=== PATIENT | female | born 1970 | race African-American/Black ===

== ENCOUNTER 2016-12-29 09:50 | Inpatient (IN) | payer OTHER ==
[2016-12-29] MEDS ORDERED: PANTOPRAZOLE SODIUM 40 MG in SODIUM CHLORIDE 100 ML IVPB ONE (10:09)
[2016-12-29] MEDS ORDERED: ONDANSETRON 4 MG/2 ML VIAL IVPB ONE ×2 (10:09→11:33)
[2016-12-29] MEDS ORDERED: morphine CARPU-JECT 4 MG/1 ML DISP.SYRIN IVPUSH ONE ×2 (10:09→18:55)
[2016-12-29] MEDS ORDERED: SODIUM CHLORIDE 1,000 ML IV STA ×2 (10:09→14:21)
[2016-12-29] MEDS ORDERED: ONDANSETRON 4 MG/2 ML VIAL ONE ×2 (10:19→19:27)
[2016-12-29] MEDS ORDERED: PANTOPRAZOLE SODIUM 100 ML IVPB ONE (10:19)
[2016-12-29] MEDS ORDERED: morphine CARPU-JECT 4 MG/1 ML DISP.SYRIN ONE ×2 (10:19→18:58)
--- NOTE | 2016-12-29 10:43 | PDOC ---
History of Present Illness <Bernie Chino - Last Filed: 12/29/16 15:08> - History of Present Illness Initial Comments: 12/29/16 10:40 "The patient is a 48 year old female, with significant past medical history of bilateral breast cancer, ovarian cancer, gastric cancer ( recent diagnoses and is not currently undergoing any treatment), DM, HTN, DVT (on lovenox), who presents to the emergency department today with 3 days of abdominal pain. She states that the pain is constant and 10/10 in severity. She notes associated nausea, vomiting, and an episode of loose stool yesterday. She experienced similar symptoms in 10/2016 when she was seen at [facility] for a bowel blockage , and again when she was admitted to [facility] on 11/11/16-11/15/16 for a bowel blockage. Pt states her current symptoms are consistent with these two prior episodes. She recently had a PET CT last , 6 days ago, at [facility] which showed carcinoma of the stomach lining. Denies fever, chills. Denies chest pain, SOB. Denies leg swelling, calf pain. Allergies: lisinopril, rivaroxaban, tamoxifen Surgical history: hysterectomy 2013 PCP: Dr. Mackenzie Syed " <Rolo Mathis - Last Filed: 12/29/16 21:52> - General Chief Complaint: Nausea/Vomiting Stated Complaint: VOMITING Time Seen by Provider: 12/29/16 10:08 Past History <Bernie Chino - Last Filed: 12/29/16 15:08> - Past Medical History Asthma: Yes Cancer: Yes (breast, ovarian, gastric) Diabetes: Yes HTN: Yes Lung CA: (hx of PE) - Family Disease History Family Disease History: Diabetes: Mother, Heart Disease: Father - Immunization History Immunization Up to Date: Yes - Suicide/Smoking/Psychosocial Hx Smoking History: Never smoked Have you smoked in the past 12 months: No Information on smoking cessation initiated: No Hx Alcohol Use: No Drug/Substance Use Hx: No Substance Use Type: None <Rolo Mathis - Last Filed: 12/29/16 21:52> - Past Medical History Allergies/Adverse Reactions: Allergies Allergy/AdvReac Type Severity Reaction Status Date / Time lisinopril Allergy Severe Swelling Verified 12/29/16 10:03 rivaroxaban [From Xarelto] Allergy Severe Swelling Verified 12/29/16 10:03 tamoxifen Allergy Severe Swelling Verified 12/29/16 10:03 Home Medications: Ambulatory Orders Enoxaparin Sodium [Lovenox] 150 mg SQ DAILY 12/29/16 Metoclopramide HCl 10 mg PO DAILY PRN 12/29/16 Omeprazole 40 mg PO DAILY 12/29/16 Sennosides [Senna Concentrate] 8.6 mg PO DAILY 12/29/16 Simethicone [Gas Relief] 125 mg PO PRN 12/29/16 Review of Systems - Review of Systems Comments:: 12/29/16 10:42 "GENERAL/CONSTITUTIONAL: No fever or chills. No weakness. HEAD, EYES, EARS, NOSE AND THROAT: No change in vision. No ear pain or discharge. No sore throat. CARDIOVASCULAR: No chest pain or shortness of breath. RESPIRATORY: No cough, wheezing, or hemoptysis. GASTROINTESTINAL: + abdominal pain, nausea, vomiting, loose stool. No constipation. GENITOURINARY: No dysuria, frequency, or change in urination. MUSCULOSKELETAL: No joint or muscle swelling or pain. No neck or back pain. SKIN: No rash NEUROLOGIC: No headache, vertigo, loss of consciousness, or change in strength/ sensation. ENDOCRINE: No increased thirst. No abnormal weight change. HEMATOLOGIC/LYMPHATIC: No anemia, easy bleeding, or history of blood clots. ALLERGIC/IMMUNOLOGIC: No hives or skin allergy." <Rolo Mathis - Last Filed: 12/29/16 21:52> *Physical Exam - Vital Signs Last Vital Signs Temp Pulse Resp BP Pulse Ox 97.8 F 78 18 134/78 100 12/29/16 11:33 12/29/16 14:02 12/29/16 14:02 12/29/16 14:02 12/29/16 11:33 <Bernie Chino - Last Filed: 12/29/16 15:08> - Vital Signs Last Vital Signs Temp Pulse Resp BP Pulse Ox 97.3 F L 100 H 22 154/125 100 12/29/16 10:04 12/29/16 10:04 12/29/16 10:04 12/29/16 10:04 12/29/16 10:04 - Physical Exam Comments: 12/29/16 10:42 " GENERAL: Awake, alert, and fully oriented, in no acute distress HEAD: No signs of trauma EYES: PERRLA, EOMI, sclera anicteric, conjunctiva clear ENT: Auricles normal inspection, hearing grossly normal, nares patent, oropharynx clear without exudates. Moist mucosa NECK: Nontender, no stepoffs, Normal ROM, supple, no lymphadenopathy, JVD, or masses LUNGS: Breath sounds equal, clear to auscultation bilaterally. No wheezes, and no crackles HEART: Regular rate and rhythm, normal S1 and S2, no murmurs, rubs or gallops ABDOMEN: +obese, soft, non distended, diffusely tender to palpation, most notably in the epigastric region, no palpable masses. normoactive bowel sounds. No guarding, no rebound. EXTREMITIES: Normal range of motion, no edema. No clubbing or cyanosis. No cords, erythema, or tenderness NEUROLOGICAL: Cranial nerves II through XII intact. 5/5 strength and sensation in all extremities, Normal speech, normal gait SKIN: Warm, Dry, normal turgor, no rashes or lesions noted." <DelfinaRolo - Last Filed: 12/29/16 21:52> ED Treatment Course - LABORATORY CBC & Chemistry Diagram: 12/29/16 11:00 12/29/16 11:00 - ADDITIONAL ORDERS Additional order review: Laboratory Results 12/29/16 12/29/16 12/29/16 11:00 11:00 11:00 PT with INR INR PTT (Actin FS) Sodium 139 Potassium 3.4 L Chloride 102 Carbon Dioxide 27 Anion Gap 10 BUN 11 Creatinine 1.0 D Creat Clearance w eGFR > 60 Random Glucose 130 H D Lactic Acid 1.7 Calcium 9.2 Magnesium 2.1 Total Bilirubin 1.0 D AST 15 D ALT 15 Alkaline Phosphatase 68 D Total Protein 7.6 Albumin 4.0 Lipase 64 L Blood Type A POSITIVE Antibody Screen Negative 12/29/16 11:00 PT with INR 12.30 H INR 1.12 D PTT (Actin FS) 27.6 Sodium Potassium Chloride Carbon Dioxide Anion Gap BUN Creatinine Creat Clearance w eGFR Random Glucose Lactic Acid Calcium Magnesium Total Bilirubin AST ALT Alkaline Phosphatase Total Protein Albumin Lipase Blood Type Antibody Screen 12/29/16 11:00 RBC 5.12 MCV 88.6 MCHC 32.2 RDW 14.1 MPV 10.9 D Neutrophils % 82.4 D Lymphocytes % 11.2 D Monocytes % 6.2 Eosinophils % 0.0 D Basophils % 0.2 - RADIOLOGY Radiograph Interpretation: 12/29/16 14:12 EXAM: CT abdomen and pelvis without contrast FINDINGS: Evaluation of the bowel, vessels, lymph nodes and solid viscera is limited without contrast. There is linear scarring versus atelectasis in the anterolateral left lower lobe and minimal linear scarring versus atelectasis in the lateral segment of the right middle lobe. The heart is not enlarged. There is a small volume of pericardial fluid which is presumably physiologic. The liver and spleen are normal in size. There is mild hepatic steatosis. The gallbladder is distended, which is nonspecific and may be physiologic related to prolonged fasting. The unenhanced pancreas is unremarkable. There is no mass in the adrenal glands. There are no renal calculi. No hydroureteronephrosis. Normal caliber abdominal aorta. There are dilated fluid-filled small bowel loops with scattered air-fluid levels, measuring up to 3.9 cm in diameter. The entire colon and terminal ileum are collapsed. There is a transition point in the pelvis, for example coronal image 55). The entire colon as well as the terminal ileum are collapsed. There is fat stranding and free fluid surrounding the dilated small bowel loops, some of which may be attributed to venous congestion. There is prominent submucosal fat deposition in the ascending colon, cecum and terminal ileum, which suggests chronic recurrent inflammation. The appendix is collapsed. There is no free intraperitoneal air. There is small volume of perihepatic and perisplenic free fluid. The uterus is surgically absent. There are postsurgical changes in the midline lower anterior abdominal wall. The urinary bladder is collapsed, precluding evaluation. There are multiple venous collaterals in the subcutaneous fat of the anterior lower chest wall and anterior abdominal wall. There is a small fat-containing infraumbilical hernia. There is nonspecific focal soft tissue in the skin and subcutaneous fat overlying the left lower quadrant of the abdomen, which may be secondary to recent injection. There is probable scar tissue in the subcutaneous fat overlying the left upper quadrant. There is incompletely imaged irregular soft tissue in the right breast, which abuts the chest wall. There is no acute fracture in the visualized osseous structures. IMPRESSION: 1. Mechanical small bowel obstruction with transition point in the pelvis as described above is probably complete, although evaluation is limited without enteric contrast. Surgical evaluation is recommended. 2. Asymmetric, irregular soft tissue in the inferior right breast, abutting the chest wall, is incompletely visualized and characterized on CT. Please correlate clinically with physical exam and medical history. Please correlate with most recent dedicated breast imaging to assess for neoplasia. 3. Mild hepatic steatosis. 4. Moderate distention of the gallbladder may be physiologic, related to prolonged fasting. Please correlate clinically. Reported By: Alonso Villavicencio MD 12/29/16 9527 EXAM#: TYPE/EXAM: RESULT: [id number] RAD/CHEST X-RAY PORTABLE* HISTORY PROVIDED: Nausea and vomiting. A single frontal portable projection of the chest at 10:20 AM is submitted. The heart size is slightly enlarged. A left-sided Port-A-Cath is present. The lung morin are free of pulmonary infiltrates or pleural effusions. IMPRESSION: Mild cardiomegaly, no acute disease. Reported By: Tarun Streeter MD 12/29/16 0554 - Medications Given in the ED: ED Medications Discontinued Medications Generic Name Dose Route Start Last Admin Trade Name Freq PRN Reason Stop Dose Admin Hydromorphone HCl 1 mg 12/29/16 11:41 12/29/16 12:10 Dilaudid Injection - IVPUSH 12/29/16 11:42 1 mg ONCE ONE Administration Pantoprazole Sodium 40 mg/ 100 mls @ 200 mls/hr 12/29/16 10:09 12/29/16 10:41 Sodium Chloride IVPB 12/29/16 10:38 200 mls/hr ONCE ONE Administration Sodium Chloride 1,000 mls @ 1,000 mls/hr 12/29/16 10:09 12/29/16 10:40 Normal Saline - IV 12/29/16 11:08 1,000 mls/hr ASDIR STA Administration Morphine Sulfate 4 mg 12/29/16 10:09 12/29/16 10:41 Morphine Injection - IVPUSH 12/29/16 10:10 4 mg ONCE ONE Administration Ondansetron HCl 4 mg 12/29/16 10:09 12/29/16 10:41 Zofran Injection IVPB 12/29/16 10:10 4 mg ONCE ONE Administration Ondansetron HCl 4 mg 12/29/16 11:33 12/29/16 11:35 Zofran Injection IVPB 12/29/16 11:34 4 mg ONCE ONE Administration <Bernie Chino - Last Filed: 12/29/16 15:08> - LABORATORY CBC & Chemistry Diagram: 12/29/16 11:00 12/29/16 11:00 - RADIOLOGY Radiology Studies Ordered: Category Date Time Status ABDOMEN & PELVIS CT WITH CONTR [CT] Stat CT Scan 12/29/16 10:09 Ordered CHEST X-RAY PORTABLE* [RAD] Stat Radiology 12/29/16 10:09 Ordered <Rolo Mathis - Last Filed: 12/29/16 21:52> Medical Decision Making - Medical Decision Making 12/29/16 14:14 [facility] paged at at 2:15pm. Dr. Gonzalez was down in the ER and spoke with Dr. Mathis. 12/29/16 14:[address] Figueroa, oncologist, at . Awaiting call back. 12/29/16 15:08 Dr. Figueroa called back and spoke with Dr. Mathis. <Bernie Chino - Last Filed: 12/29/16 15:08> - Medical Decision Making 12/29/16 10:42 46 F with recently diagnosed gastric CA, two prior SBOs presenting to ER with abdominal pain and vomiting, concerning for SBO. - Labs - CTAP - IVF, pain meds 12/29/16 15:10 I spoke with pt's oncologist, Dr. Figueroa at [facility], who reports that pt had a bowel obstruction in November 2016 that was due to malignancy. Pt had resection at that time. Pt also had PET CT a few days ago that did not show definite metastatic disease but did have some mesenteric fat stranding. CTAP today consistent with SBO. Dr. Gonzalez aware of pt, recommends at this time NG tube and admission for further medical work up. 12/29/16 15:37 Pt refusing NG tube at this time. Case discussed in detail with admitting physician including history, physical exam and ancillary studies. Admitting physician has assumed care for the patient and will follow all pending diagnostics and complete the evaluation and treatment. <Rolo Mathis - Last Filed: 12/29/16 21:52> *DC/Admit/Observation/Transfer - Attestations Scribe Attestion: 12/29/16 14:36 Documentation prepared by MISBAH Price, acting as medical affairs specialist for Rolo Mathis MD. <Bernie Chino - Last Filed: 12/29/16 15:08> - Attestations Physician Attestion: 12/29/16 21:52 I, Dr. Rolo Mathis MD, attest that this document has been prepared under my direction and personally reviewed by me in its entirety. I further attest, that it accurately reflects all work, treatment, procedures and medical decision -making performed by me. <Rolo Mathis - Last Filed: 12/29/16 21:52> Diagnosis at time of Disposition: Small bowel obstruction - Referrals
[2016-12-29 11:21] LABS: BASOPHIL 0.2 % (0-2.0); MCH 28.5 pg (25.7-33.7); MCHC 32.2 g/dl (32.0-36.0); MEAN CELL VOLUME 88.6 fl (80-96); MEAN PLT VOLUME 10.9 fl (7.5-11.1); NEUTROPHILS 82.4 % (42.8-82.8); PLATELET COUNT 160 K/MM3 (134-434); RDW 14.1 % (11.6-15.6); WHITE BLOOD COUNT 7.6 K/mm3 (4.0-10.0)
[2016-12-29 11:31] LABS: ANION GAP 10 (8-16); CALCIUM 9.2 mg/dL (8.5-10.1); CO2 27 mmol/L (21-32); GLUCOSE,RANDOM 130 mg/dL (74-106); INR 1.12 (0.82-1.09); MAGNESIUM 2.1 mg/dL (1.8-2.4); PROTHROMBIN TIME (PATIENT) 12.3 SEC (9.98-11.88)
[2016-12-29 11:34] LABS: ACTIVATED PTT 27.6 SECONDS (26.9-34.4); ALK PHOS 68 U/L (45-117); SGOT/AST 15 U/L (15-37); SGPT/ALT 15 U/L (12-78); TOT PROT 7.6 g/dl (6.4-8.2)
[2016-12-29] MEDS ORDERED: HYDROmorphone HCL CARPU-JECT 1 MG/1 ML DISP.SYRIN IVPUSH ONE (11:41)
[2016-12-29] MEDS ORDERED: HYDROmorphone HCL CARPU-JECT 1 MG/1 ML DISP.SYRIN ONE (11:42)
[2016-12-29] MEDS ORDERED: ENOXAPARIN NA (PORCINE) 40 MG/0.4 ML DISP.SYRIN SQ SCH (16:45)
--- NOTE | 2016-12-29 17:04 | HP ---
CHIEF COMPLAINT: Abdominal pain, N/V X3 days PCP: Dr Ivan Sneed-[facility]- [phone] Oncologist-Dr VALERIO -[facility] -[phone] HISTORY OF PRESENT ILLNESS: The patient is a 48 year old female, with significant past history of multiple surgeries including two unilateral oophorectomies, then hysterectomy, bilateral breast cancer, ovarian cancer, peritoneal cancer (recent diagnoses and is not currently undergoing any treatment), asthma, DM, HTN, DVT (on lovenox), who presents to the emergency department today with 3 days hx of abdominal pain. The pain is midline, located more in the epigastric region, but radiating to the back. It is colicky in nature and is a 10/10. The pain is worse by leaning forward and has been relieved in the hospital with morphine. There is no known precipitating factor, the pain comes on suddenly and is associated with nausea and vomiting. the patient has had recurrent episodes of vomiting, since the onset of the pain, containing yellowish substances and foul smelling. No associated hematemesis. A day before the pain started the patient had several episodes of "liquid" brown stool. No associated melena or hematochezia. 2 days prior to the onset of the pain, she said she had been constipated. Patient usually passes stool about twice everyday but her last bowel movement was 2 days ago. Patient has had similar episodes in the past for which she was seen at [facility] and had an NGT placed. The daughter thinks this episode was precipitated by eating lobster, but the patient was not so sure. The first episode of abdominal pain and vomiting was on October 21, and the episodes have been recurrent, coming on about every two weeks. ER course was notable for: (1)CT abdomen-shows mechanical bowel obstruction with transition zone in the pelvis (2)lipase-64, normal LFTs, normal CBCs (3)Hypokalemia-3.4 4) Pain management with morphine and hydromorphone, zofran , N/saline and pantoprazole 4)CXR_ cardiomegaly w/no acute dx Recent Travel: PAST MEDICAL HISTORY: HTN DM Asthma DVT (LL and UL) Endometriosis Breast cancer Peritoneal Cancer Neuropathy ? Osteoarthritis PAST SURGICAL HISTORY: Hysterectomy Oophoractomy and cystectomy Bilaterally mastectomy Social History: Smoking: Alcohol: Drugs: Family History: Allergies lisinopril Allergy (Severe, Verified 12/29/16 10:03) Swelling rivaroxaban [From Xarelto] Allergy (Severe, Verified 12/29/16 10:03) Swelling tamoxifen Allergy (Severe, Verified 12/29/16 10:03) Swelling HOME MEDICATIONS: Home Medications Medication Instructions Recorded Enoxaparin Sodium [Lovenox] 150 mg SQ DAILY 12/29/16 Metoclopramide HCl 10 mg PO DAILY PRN 12/29/16 Omeprazole 40 mg PO DAILY 12/29/16 Sennosides [Senna Concentrate] 8.6 mg PO DAILY 12/29/16 Simethicone [Gas Relief] 125 mg PO PRN 12/29/16 REVIEW OF SYSTEMS CONSTITUTIONAL: Absent: fever, chills, diaphoresis, generalized weakness, malaise, loss of appetite, weight change HEENT: Absent: rhinorrhea, nasal congestion, throat pain, throat swelling, difficulty swallowing, mouth swelling, ear pain, eye pain, visual changes CARDIOVASCULAR: Absent: chest pain, syncope, palpitations, irregular heart rate, lightheadedness , peripheral edema RESPIRATORY: Absent: cough, shortness of breath, dyspnea with exertion, orthopnea, wheezing, stridor, hemoptysis GASTROINTESTINAL: Absent: abdominal pain+, abdominal distension, nausea+, vomiting+, diarrhea+, constipation+, melena, hematochezia GENITOURINARY: Absent: dysuria, frequency, urgency, hesitancy, hematuria, flank pain, genital pain MUSCULOSKELETAL: Absent: myalgia, arthralgia, joint swelling, back pain, neck pain SKIN: Absent: rash, itching, pallor HEMATOLOGIC/IMMUNOLOGIC: Absent: easy bleeding, easy bruising, lymphadenopathy, frequent infections ENDOCRINE: Absent: unexplained weight gain, unexplained weight loss, heat intolerance, cold intolerance NEUROLOGIC: Absent: headache, focal weakness or paresthesias, dizziness, unsteady gait, seizure, mental status changes, bladder or bowel incontinence PSYCHIATRIC: Absent: anxiety, depression, suicidal or homicidal ideation, hallucinations. PHYSICAL EXAMINATION Vital Signs 12/29/16 12/29/16 12/29/16 11:33 14:02 17:35 Temperature 97.8 F 97.8 F Pulse Rate [ 97 H 78 78 Left Radial] Respiratory 19 18 17 Rate Blood Pressure 151/94 134/78 134/65 [Right Arm] O2 Sat by Pulse 100 100 Oximetry (%) GENERAL: Obese lady, awake, alert, and fully oriented, in mild painful distress. HEAD: Normal with no signs of trauma. EYES: Pupils equal, round and reactive to light, extraocular movements intact, sclera anicteric, conjunctiva clear. No lid lag. EARS, NOSE, THROAT: Ears normal, nares patent, oropharynx clear without exudates. Moist mucous membranes. NECK: Normal range of motion, supple without lymphadenopathy, JVD, or masses. LUNGS:Port seen on L chest. Breath sounds equal, clear to auscultation bilaterally. No wheezes, and no crackles. No accessory muscle use. HEART: Regular rate and rhythm, normal S1 and S2 without murmur, rub or gallop. ABDOMEN: Obese, midline scar seen below the umbilicus. Soft, tender epigastrium. Hyperactive bowel sounds, mild guarding, no rebound, no masses. No hepatomegaly or splenomegaly. MUSCULOSKELETAL: Normal range of motion at all joints. No bony deformities or tenderness. No CVA tenderness. UPPER EXTREMITIES: 2+ pulses, warm, well-perfused. No cyanosis. No clubbing. No peripheral edema. LOWER EXTREMITIES: 2+ pulses, warm, well-perfused. No calf tenderness. No peripheral edema. NEUROLOGICAL: Cranial nerves II-XII intact. Normal speech. Normal gait. PSYCHIATRIC: Cooperative. Good eye contact. Appropriate mood and affect. SKIN: Warm, dry, normal turgor, no rashes or lesions noted, normal capillary refill. ASSESSMENT/PLAN: #Small bowel obstruction likely 2/2 to adhesions History of multiple pelvic surgeries in past, could also be related to her new diagnosis of ? peritoneal cancer pressing on the bowel and obstructing it NPO IV fluids N/saline zofran NGT CBC BMP Consult- oncology Consult- Surgery- Follow up with [facility] doctors for accurate records monitor CBC, Mg, K, Phos #Hypokalemia Due to the vomiting Replete with KCL Will monitor CMP #Nausea and vomiting: Zofran #Abdominal pain Likely due to the obstruction Dilaudid #DM Patient said she has been managed on diet alone SSI Will monitor #HTN Patient says she has been stable off meds managed with diet Will monitor #Asthma No SOB, not in acute exacerbation Will monitor #DVT On lovenox 150mls/day Continue #FEN Continue N/saline Replete electrolytes as needed NPO for now #Prophylaxis DVT- on Lovenox 150ml/day (for DVT) # Dispo Admit Med Surg Visit type - Emergency Visit Emergency Visit: Yes ED Registration Date: 12/29/16 Care time: The patient presented to the Emergency Department on the above date and was hospitalized for further evaluation of their emergent condition. - New Patient This patient is new to me today: Yes Date on this admission: 12/29/16 - Critical Care Critical Care patient: No
--- NOTE | 2016-12-29 17:23 | PN ---
Teaching Attending Note Name of Resident: Jennifer Burgos ATTENDING PHYSICIAN STATEMENT I saw and evaluated the patient. I reviewed the resident's note and discussed the case with the resident. I agree with the resident's findings and plan as documented. SUBJECTIVE: This patient is a 48 year old female, with PMHx of multiple surgeries Laporoscopic Hysterectomy, Mastectomy (right for cancer and left prophylactic) , Oopherectomy (1st open; 2nd laparoscopic for prophylaxis after breast CA dx with hx of DVT on hormonal therapy. Also patient has a left sided Port a cath x 5yrs, lap.endometriosis, with recent SBO on 11/2016 s/p lap.with peritoneal Bx at [facility]. whicha was positive for cancer. Patient presents today with nausea and vomiting. Vital Signs Temperature 97.8 F 12/29/16 11:33 Pulse Rate 78 12/29/16 14:02 Respiratory Rate 18 12/29/16 14:02 Blood Pressure 134/78 12/29/16 14:02 O2 Sat by Pulse Oximetry (%) 100 12/29/16 11:33 CBCD WBC 7.6 K/mm3 (4.0-10.0) 12/29/16 11:00 RBC 5.12 M/mm3 (3.60-5.2) 12/29/16 11:00 Hgb 14.6 GM/dL (10.7-15.3) 12/29/16 11:00 Hct 45.3 % (32.4-45.2) H 12/29/16 11:00 MCV 88.6 fl (80-96) 12/29/16 11:00 MCHC 32.2 g/dl (32.0-36.0) 12/29/16 11:00 RDW 14.1 % (11.6-15.6) 12/29/16 11:00 Plt Count 160 K/MM3 (134-434) 12/29/16 11:00 MPV 10.9 fl (7.5-11.1) D 12/29/16 11:00 CMP Sodium 139 mmol/L (136-145) 12/29/16 11:00 Potassium 3.4 mmol/L (3.5-5.1) L 12/29/16 11:00 Chloride 102 mmol/L (98-107) 12/29/16 11:00 Carbon Dioxide 27 mmol/L (21-32) 12/29/16 11:00 Anion Gap 10 (8-16) 12/29/16 11:00 BUN 11 mg/dL (7-18) 12/29/16 11:00 Creatinine 1.0 mg/dL (0.55-1.02) D 12/29/16 11:00 Creat Clearance w eGFR > 60 (>60) 12/29/16 11:00 Random Glucose 130 mg/dL (74-106) H D 12/29/16 11:00 Calcium 9.2 mg/dL (8.5-10.1) 12/29/16 11:00 Total Bilirubin 1.0 mg/dL (0.2-1.0) D 12/29/16 11:00 AST 15 U/L (15-37) D 12/29/16 11:00 ALT 15 U/L (12-78) 12/29/16 11:00 Alkaline Phosphatase 68 U/L (45-117) D 12/29/16 11:00 Total Protein 7.6 g/dl (6.4-8.2) 12/29/16 11:00 Albumin 4.0 g/dl (3.4-5.0) 12/29/16 11:00 Current Medications Generic Name Dose Route Start Last Admin Trade Name Freq PRN Reason Stop Dose Admin Enoxaparin Sodium 150 mg 12/29/16 16:45 Lovenox - SQ DAILY [facility] Sodium Chloride 1,000 mls @ 125 mls/hr 12/29/16 14:21 12/29/16 14:40 Normal Saline - IV 12/29/16 22:20 125 mls/hr ASDIR STA Administration Insulin Aspart 1 vial 12/29/16 22:00 Novolog Vial Sliding Scale - SQ [facility] Protocol Home Medications Medication Instructions Recorded Enoxaparin Sodium [Lovenox] 150 mg SQ DAILY 12/29/16 Metoclopramide HCl 10 mg PO DAILY PRN 12/29/16 Omeprazole 40 mg PO DAILY 12/29/16 Sennosides [Senna Concentrate] 8.6 mg PO DAILY 12/29/16 Simethicone [Gas Relief] 125 mg PO PRN 12/29/16 PE: Positive for nausea and vomiting Chest: left sided Port A cath, BL mastectomy Heart: S1S2 positive. rest of physical exam per resident. CT of abdomen: SBO CT abdomen-shows mechanical bowel obstruction with transition zone in the pelvis CXR_ cardiomegaly ASSESSMENT AND PLAN: This patient is a 48 year old female, with PMHx of multiple surgeries Laporoscopic Hysterectomy, Mastectomy (right for cancer and left prophylactic) , Oopherectomy (1st open; 2nd laparoscopic for prophylaxis after breast CA dx with hx of DVT on hormonal therapy, with recent SBO on 11/2016 s/p lap.with peritoneal Bx at [facility]. which was positive for cancer. Patient presents today with nausea and vomiting. # Acute mechanical SBO, NPO for now. surgery on the case. NG tube was refused by the patient. # Hx of breast ca s/p BL mastectomy with 3 nodes positive was treated by Nolvadex but as per patient developed DVT, so she is no longer on it. Oncology consult # Hx of DVT on 150mg Lovenox DVT Px: Lovenox
[2016-12-29] MEDS ORDERED: ENOXAPARIN NA (PORCINE) 60 MG/0.6 ML DISP.SYRIN SQ ONE (17:59)
[2016-12-29] MEDS ORDERED: ENOXAPARIN NA (PORCINE) 100 MG/1 ML DISP.SYRIN SQ ONE (17:59)
[2016-12-29] MEDS: ENOXAPARIN 120 MG, ENOXAPARIN 30 MG SQ SCH (18:03)
--- NOTE | 2016-12-29 18:17 | HP ---
CHIEF COMPLAINT: PCP: HISTORY OF PRESENT ILLNESS: ER course was notable for: (1) (2) (3) Recent Travel: PAST MEDICAL HISTORY: PAST SURGICAL HISTORY: Social History: Smoking: Alcohol: Drugs: Family History: Allergies lisinopril Allergy (Severe, Verified 12/29/16 10:03) Swelling rivaroxaban [From Xarelto] Allergy (Severe, Verified 12/29/16 10:03) Swelling tamoxifen Allergy (Severe, Verified 12/29/16 10:03) Swelling HOME MEDICATIONS: Home Medications Medication Instructions Recorded Enoxaparin Sodium [Lovenox] 150 mg SQ DAILY 12/29/16 Metoclopramide HCl 10 mg PO DAILY PRN 12/29/16 Omeprazole 40 mg PO DAILY 12/29/16 Sennosides [Senna Concentrate] 8.6 mg PO DAILY 12/29/16 Simethicone [Gas Relief] 125 mg PO PRN 12/29/16 REVIEW OF SYSTEMS CONSTITUTIONAL: Absent: fever, chills, diaphoresis, generalized weakness, malaise, loss of appetite, weight change HEENT: Absent: rhinorrhea, nasal congestion, throat pain, throat swelling, difficulty swallowing, mouth swelling, ear pain, eye pain, visual changes CARDIOVASCULAR: Absent: chest pain, syncope, palpitations, irregular heart rate, lightheadedness , peripheral edema RESPIRATORY: Absent: cough, shortness of breath, dyspnea with exertion, orthopnea, wheezing, stridor, hemoptysis GASTROINTESTINAL: Absent: abdominal pain, abdominal distension, nausea, vomiting, diarrhea, constipation, melena, hematochezia GENITOURINARY: Absent: dysuria, frequency, urgency, hesitancy, hematuria, flank pain, genital pain MUSCULOSKELETAL: Absent: myalgia, arthralgia, joint swelling, back pain, neck pain SKIN: Absent: rash, itching, pallor HEMATOLOGIC/IMMUNOLOGIC: Absent: easy bleeding, easy bruising, lymphadenopathy, frequent infections ENDOCRINE: Absent: unexplained weight gain, unexplained weight loss, heat intolerance, cold intolerance NEUROLOGIC: Absent: headache, focal weakness or paresthesias, dizziness, unsteady gait, seizure, mental status changes, bladder or bowel incontinence PSYCHIATRIC: Absent: anxiety, depression, suicidal or homicidal ideation, hallucinations. PHYSICAL EXAMINATION Vital Signs - 24 hr 12/29/16 17:35 Temperature 97.8 F Pulse Rate [ 78 Left Radial] Respiratory 17 Rate Blood Pressure 134/65 [Right Arm] O2 Sat by Pulse 100 Oximetry (%) GENERAL: Awake, alert, and fully oriented, in no acute distress. HEAD: Normal with no signs of trauma. EYES: Pupils equal, round and reactive to light, extraocular movements intact, sclera anicteric, conjunctiva clear. No lid lag. EARS, NOSE, THROAT: Ears normal, nares patent, oropharynx clear without exudates. Moist mucous membranes. NECK: Normal range of motion, supple without lymphadenopathy, JVD, or masses. LUNGS: Breath sounds equal, clear to auscultation bilaterally. No wheezes, and no crackles. No accessory muscle use. HEART: Regular rate and rhythm, normal S1 and S2 without murmur, rub or gallop. ABDOMEN: Soft, nontender, not distended, normoactive bowel sounds, no guarding, no rebound, no masses. No hepatomegaly or splenomegaly. MUSCULOSKELETAL: Normal range of motion at all joints. No bony deformities or tenderness. No CVA tenderness. UPPER EXTREMITIES: 2+ pulses, warm, well-perfused. No cyanosis. No clubbing. No peripheral edema. LOWER EXTREMITIES: 2+ pulses, warm, well-perfused. No calf tenderness. No peripheral edema. NEUROLOGICAL: Cranial nerves II-XII intact. Normal speech. Normal gait. PSYCHIATRIC: Cooperative. Good eye contact. Appropriate mood and affect. SKIN: Warm, dry, normal turgor, no rashes or lesions noted, normal capillary refill. ASSESSMENT/PLAN:
[2016-12-29] MEDS ORDERED: KCL 10 MEQ IVPB 100 ML IVPB SCH (18:45)
[2016-12-29] MEDS ORDERED: KCL 10 MEQ IVPB 100 ML IVPB ONE (19:03)
[2016-12-29] MEDS: ONDANSETRON 4 MG/2 ML VIAL IVPB PRN (19:39)
[2016-12-29 19:56] LABS: URINE APPEARANCE SLCLOUDY; URINE BILIRUBIN NEGATIVE (NEGATIVE); URINE BLOOD NEGATIVE (NEGATIVE); URINE COLOR DKYELLOW; URINE GLUCOSE (UA) NEGATIVE (NEGATIVE); URINE KETONE 2+ (NEGATIVE); URINE LEUK ESTERASE NEGATIVE (NEGATIVE); URINE NITRITE NEGATIVE (NEGATIVE); URINE UROBILINOGEN NEGATIVE mg/dL (0.2-1.0)
[2016-12-29 19:57] LABS: URINE PROTEIN 1+ (NEGATIVE)
[2016-12-29 19:58] LABS: URINE MUCUS FEW; URINE RBC 2 /hpf (0-3); URINE WBC 3 /hpf (3-5)
--- NOTE | 2016-12-29 23:23 | CONSULT ---
Consult Consult Specialty:: General Surgery Referred by:: Dr. Mathis Reason for Consultation:: SBO - History of Present Illness Chief Complaint: epigastric pain, N/V History of Present Illness: 46yo obese F with HTN, asthma, DM2 (diet-controlled), h/o right breast CA s/p bilateral mastectomy with R ALND and subsequent RUE lymphedema, s/p L portacath , s/p bilateral oophorectomy at separate times - first after childbirth/ for ovarian rupture via lower midline incision, second laparoscopically for prophylaxis after breast CA diagnosis with need for hormonal therapy and after DVT, for which she is on therapeutic lovenox, s/p laparoscopy for endometriosis and subsequent hysterectomy for bleeding (both between oophorectomies), began having problems with small bowel obstruction in October, which recurred in November and again starting Tuesday. She has been treated with NGT before, and does not want it again, because "it doesn't work." In November, she had laparoscopy for SBO at [facility], where they discovered cancer on peritoneal biopsy but tissue was not adequate to identify organ of origin. She had PET last week and is awaiting results. She was able to go home after 4-5 days in hospital then, and has been ok since with regard to GI function, until Tuesday after eating lobster. She began having epigastric pain and was unable to have BM. She has not eaten since then, because liquids and food both come back up - she has had N /V and still feels nauseated intermittently. She has felt cold but had no fevers. Still been urinating but less than usual. Has appt with oncologist next week. In ER, she has normal WBC, lactate, and is afebrile. CT showed mechanical SBO with transition point in pelvis and decompressed terminal ileum and entire colon , fat stranding and some free fluid around dilated SB loops, no free air, collapsed appendix, soft tissue findings consistent with lovenox injections, recent laparoscopic incisions, mastectomy scars. She is admitted to medicine; surgery is consulted for SBO. 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: Peripheral Neuropathy Cardio/Vascular: Yes: Deep Vein Thrombosis (on therapeutic lovenox), HTN Pulmonary: Yes: Asthma Gastrointestinal: Yes: Cancer (peritoneal - diagnosed with laparoscopic biopsy , which was inadequate to identify primary organ) Reproductive: Yes: Endometriosis, Postmenopausal, Other (h/o right breast CA; lymphedema RUE; lost one ovary after /childbirth; laparoscopy for endometriosis; uterus out for bleeding later) ...: No Psych: Yes: Depression (pt does not take meds regularly) Musculoskeletal: Yes: Chronic low back pain, Osteoarthritis Endocrine: Yes: Diabetes Mellitus (diet-controlled type 2) - Past Surgical History Past Surgical History: Yes: Hysterectomy (laparoscopic), Mastectomy (right for cancer with ALND; left prophylactic), Oopherectomy (1st open; 2nd laparoscopic for prophylaxis after breast CA dx and need for hormonal therapy and h/o DVT) Additional Surgical History: left-sided port-a-cath x5y; laparoscopy for endometriosis; laparoscopy for SBO 11/18 with peritoneal biopsy positive for cancer but inconclusive for etiology - Alcohol/Substance Use Hx Alcohol Use: No History of Substance Use: reports: None - Smoking History Smoking history: Never smoked Have you smoked in the past 12 months: No - Social History ADL: Independent Home Medications - Allergies Allergies/Adverse Reactions: Allergies Allergy/AdvReac Type Severity Reaction Status Date / Time lisinopril Allergy Severe Swelling Verified 12/29/16 10:03 rivaroxaban [From Xarelto] Allergy Severe Swelling Verified 12/29/16 10:03 tamoxifen Allergy Severe Swelling Verified 12/29/16 10:03 - Home Medications Home Medications: Ambulatory Orders Enoxaparin Sodium [Lovenox] 150 mg SQ DAILY 12/29/16 Metoclopramide HCl 10 mg PO DAILY PRN 12/29/16 Omeprazole 40 mg PO DAILY 12/29/16 Sennosides [Senna Concentrate] 8.6 mg PO DAILY 12/29/16 Simethicone [Gas Relief] 125 mg PO PRN 12/29/16 Home Medications (free text): albuterol prn for asthma - has not needed in a long time Review of Systems - Review of Systems Constitutional: reports: Chills, Loss of Appetite. denies: Fever Eyes: denies: Blurred Vision, Recent Change in Vision HENT: denies: Nasal Congestion, Throat Pain Neck: denies: Swollen Glands, Tenderness Cardiovascular: denies: Chest Pain, Palpitations Respiratory: denies: Cough, SOB Gastrointestinal: reports: Abdominal Pain (with hpi), Constipation ("could not go to bathroom" from Tuesday), Nausea (yesterday, with hpi), Vomiting (yesterday , with hpi). denies: Diarrhea Genitourinary: denies: Burning, Dysuria Breasts: reports: Other (s/p bilateral mastectomy). denies: Skin Changes Musculoskeletal: reports: Back Pain, Joint Pain (knees) Integumentary: denies: Change in Color, Rash Neurological: denies: Dizziness, Headache Endocrine: reports: Intolerance to Cold, Unexplained Weight Loss Psychiatric: reports: Depression (does not take meds regularly). denies: Anxiety Physical Exam Vital Signs: Vital Signs Temperature 98.3 F 12/29/16 20:10 Pulse Rate 72 12/29/16 20:10 Respiratory Rate 17 12/29/16 20:10 Blood Pressure 143/79 12/29/16 20:10 O2 Sat by Pulse Oximetry (%) 98 12/29/16 20:10 Constitutional: Yes: Calm, Mild Distress, Obese Eyes: Yes: Conjunctiva Clear, EOM Intact. No: Sclera Icterus HENT: Yes: Atraumatic, Normocephalic Cardiovascular: Yes: Regular Rate and Rhythm, Other (left chest port in place, accessed for IV). No: Murmur Respiratory: Yes: Regular, CTA Bilaterally. No: Wheezes Gastrointestinal: Yes: Soft, Abdomen, Obese, Hypoactive Bowel Sounds, Tenderness , Epigastrium, Other (spitting up some, feeling nauseated, no reji emesis during exam). No: Tenderness (elsewhere), Tenderness, Rebound (no guarding) ...Rectal Exam: Yes: Deferred Renal/: No: CVA Tenderness - Left, CVA Tenderness - Right Breast(s): Yes: Other (s/p bilateral mastectomy, well-healed scars) Musculoskeletal: No: Joint Stiffness, Joint Swelling Extremities: No: Cool, Cyanosis Edema: Yes Edema: RUE: 2+ (lymphedema) Peripheral Pulses WNL: Yes Integumentary: Yes: Incision (healed and recent laparoscopic scars). No: Jaundice, Rash Neurological: Yes: Alert, Oriented Psychiatric: Yes: Alert, Oriented Labs: CBCD WBC 7.6 K/mm3 (4.0-10.0) 12/29/16 11:00 RBC 5.12 M/mm3 (3.60-5.2) 12/29/16 11:00 Hgb 14.6 GM/dL (10.7-15.3) 12/29/16 11:00 Hct 45.3 % (32.4-45.2) H 12/29/16 11:00 MCV 88.6 fl (80-96) 12/29/16 11:00 MCHC 32.2 g/dl (32.0-36.0) 12/29/16 11:00 RDW 14.1 % (11.6-15.6) 12/29/16 11:00 Plt Count 160 K/MM3 (134-434) 12/29/16 11:00 MPV 10.9 fl (7.5-11.1) D 12/29/16 11:00 CMP Sodium 139 mmol/L (136-145) 12/29/16 11:00 Potassium 3.4 mmol/L (3.5-5.1) L 12/29/16 11:00 Chloride 102 mmol/L (98-107) 12/29/16 11:00 Carbon Dioxide 27 mmol/L (21-32) 12/29/16 11:00 Anion Gap 10 (8-16) 12/29/16 11:00 BUN 11 mg/dL (7-18) 12/29/16 11:00 Creatinine 1.0 mg/dL (0.55-1.02) D 12/29/16 11:00 Creat Clearance w eGFR > 60 (>60) 12/29/16 11:00 Calcium 9.2 mg/dL (8.5-10.1) 12/29/16 11:00 Total Bilirubin 1.0 mg/dL (0.2-1.0) D 12/29/16 11:00 AST 15 U/L (15-37) D 12/29/16 11:00 ALT 15 U/L (12-78) 12/29/16 11:00 Alkaline Phosphatase 68 U/L (45-117) D 12/29/16 11:00 Total Protein 7.6 g/dl (6.4-8.2) 12/29/16 11:00 Albumin 4.0 g/dl (3.4-5.0) 12/29/16 11:00 INR, PTT INR 1.12 (0.82-1.09) D 12/29/16 11:00 lactate 1.7, lipase 64 Urine Test Results Urine Color Dkyellow 12/29/16 19:30 Urine Appearance Slcloudy 12/29/16 19:30 Urine pH 5.0 (5.0-8.0) D 12/29/16 19:30 Ur Specific [place] >= 1.030 (1.005-1.025) H 12/29/16 19:30 Urine Protein 1+ (NEGATIVE) H 12/29/16 19:30 Urine Glucose (UA) Negative (NEGATIVE) 12/29/16 19:30 Urine Ketones 2+ (NEGATIVE) H 12/29/16 19:30 Urine Blood Negative (NEGATIVE) 12/29/16 19:30 Urine Nitrite Negative (NEGATIVE) 12/29/16 19:30 Urine Bilirubin Negative (NEGATIVE) 12/29/16 19:30 Urine RBC 2 /hpf (0-3) 12/29/16 19:30 Urine WBC 3 /hpf (3-5) 12/29/16 19:30 Ur Epithelial Cells Moderate /hpf (FEW) 12/29/16 19:30 Urine Mucus Few 12/29/16 19:30 Imaging - Results Cat Scan: Report Reviewed, Image Reviewed Problem List - Problems (1) Malignant neoplasm of peritoneum, unspecified Assessment/Plan: recent diagnosis, cause of most recent SBO pt had PET last week, is awaiting results from her oncologist peritoneal biopsy was positive for cancer but not primary organ/etiology likely is contributing to current/recurrent SBO along with adhesions in pelvis admitted to medicine oncology consult pending NPO/IVF refuses NGT surgical intervention for malignant SBO unlikely to provide long-term benefit if widespread peritoneal involvement pt could not tolerate oral contrast, so cannot follow through to colon consider serial AXR await oncology input will follow with you (2) Mechanical obstruction of the intestine Assessment/Plan: likely malignant SBO with elements of adhesive obstruction as well see above Code(s): K56.69 - OTHER INTESTINAL OBSTRUCTION (3) History of right breast cancer Assessment/Plan: right limb precautions pt was due for appt with [facility] Code(s): Z85.3 - PERSONAL HISTORY OF MALIGNANT NEOPLASM OF BREAST (4) S/P total hysterectomy and bilateral salpingo-oophorectomy Assessment/Plan: adhesions likely also contributing to mechanical SBO Code(s): Z90.710 - ACQUIRED ABSENCE OF BOTH CERVIX AND UTERUS Z90.722 - ACQUIRED ABSENCE OF OVARIES, BILATERAL Z90.79 - ACQUIRED ABSENCE OF OTHER GENITAL ORGAN(S) (5) History of DVT (deep vein thrombosis) Assessment/Plan: pt on therapeutic anticoagulation would need to be held for any possible invasive procedure Code(s): Z86.718 - PERSONAL HISTORY OF OTHER VENOUS THROMBOSIS AND EMBOLISM
[2016-12-30] MEDS: ONDANSETRON 4 MG/2 ML VIAL IVPB PRN ×2 (01:30→14:34)
[2016-12-30] MEDS: HYDROmorphone HCL CARPU-JECT 2 MG/1 ML DISP.SYRIN IVPB PRN ×2 (01:32→13:16)
[2016-12-30] MEDS: INSULIN SLIDING SCALE (NOVOLOG) 1 VIAL SQ SCH ×5 (01:32→22:10)
[2016-12-30 03:50] VITALS: BMI 41.1
[2016-12-30] MEDS ORDERED: SODIUM CHLORIDE 1,000 ML IV SCH (08:30)
[2016-12-30] MEDS ORDERED: D5-1/2NS+40 MEQ KCL - 1,000 ML IV SCH (08:30)
--- NOTE | 2016-12-30 10:18 | PN ---
Progress Note, Physician Chief Complaint: epigastric pain, n/v History of Present Illness: Pt seen and examined in bed. Came up to floor from ER early this am and has had N/V multiple times. C/O epigastric pain. Feels sugar is getting low - fingerstick 91. No BM or flatus. She is currently going to radiology for AXR. - Current Medication List Current Medications: Active Medications Enoxaparin Sodium 120 mg/ (Enoxaparin Sodium 30 mg) 150 mg SQ DAILY MIHIR Last Admin: 12/29/16 18:03 Dose: 150 mg Hydromorphone HCl (Dilaudid Injection -) 2 mg IVPB Q6H PRN PRN Reason: PAIN Last Admin: 12/30/16 01:32 Dose: 2 mg Dextrose/Sodium Chloride (D5-1/2ns+40 Meq Kcl -) 1,000 mls @ 75 mls/hr IV ASDIR MIHIR Insulin Aspart (Novolog Vial Sliding Scale -) 1 vial SQ ACHS MIHIR PRN Reason: Protocol Last Admin: 12/30/16 06:38 Dose: Not Given Ondansetron HCl (Zofran Injection) 4 mg IVPB Q6H PRN PRN Reason: NAUSEA Last Admin: 12/30/16 01:30 Dose: 4 mg - Objective Vital Signs: Vital Signs Temperature 97.9 F 12/30/16 09:51 Pulse Rate 54 L 12/30/16 09:51 Respiratory Rate 16 12/30/16 09:51 Blood Pressure 130/90 12/30/16 09:51 O2 Sat by Pulse Oximetry (%) 99 12/30/16 02:00 Constitutional: Yes: No Distress, Calm, Obese Cardiovascular: Yes: Other (left chest port accessed) Gastrointestinal: Yes: Soft, Abdomen, Obese, Tenderness (also lower midline), Tenderness, Epigastrium, Tenderness, Rebound (no guarding or rebound). No: Distention Neurological: Yes: Oriented, Lethargy Labs: pending - ....Imaging X-ray: Pending Problem List - Problems (1) Malignant neoplasm of peritoneum, unspecified Assessment/Plan: no change in A/P yet: recent diagnosis, cause of most recent SBO pt had PET last week, is awaiting results from her oncologist peritoneal biopsy was positive for cancer but not primary organ/etiology likely is contributing to current/recurrent SBO along with adhesions in pelvis admitted to medicine oncology consult pending NPO/IVF monitor glucose pain meds prn but minimize narcotics as able refuses NGT surgical intervention for malignant SBO unlikely to provide long-term benefit if widespread peritoneal involvement pt could not tolerate oral contrast, so cannot follow through to colon AXR pending this morning await oncology input will follow with you (2) Mechanical obstruction of the intestine Assessment/Plan: likely malignant SBO with elements of adhesive obstruction as well see above Code(s): K56.69 - OTHER INTESTINAL OBSTRUCTION (3) History of right breast cancer Assessment/Plan: right limb precautions pt was due for appt with [facility] Code(s): Z85.3 - PERSONAL HISTORY OF MALIGNANT NEOPLASM OF BREAST (4) S/P total hysterectomy and bilateral salpingo-oophorectomy Assessment/Plan: adhesions likely also contributing to mechanical SBO Code(s): Z90.710 - ACQUIRED ABSENCE OF BOTH CERVIX AND UTERUS Z90.722 - ACQUIRED ABSENCE OF OVARIES, BILATERAL Z90.79 - ACQUIRED ABSENCE OF OTHER GENITAL ORGAN(S) (5) History of DVT (deep vein thrombosis) Assessment/Plan: pt on therapeutic anticoagulation would need to be held for any possible invasive procedure Code(s): Z86.718 - PERSONAL HISTORY OF OTHER VENOUS THROMBOSIS AND EMBOLISM
--- NOTE | 2016-12-30 10:39 | EKG ---
Test Reason : Blood Pressure : / mmHG Vent. Rate : 061 BPM Atrial Rate : 061 BPM P-R Int : 170 ms QRS Dur : 092 ms QT Int : 460 ms P-R-T Axes : 052 003 004 degrees QTc Int : 463 ms NORMAL SINUS RHYTHM NONSPECIFIC T WAVE ABNORMALITY ABNORMAL ECG NO PREVIOUS ECGS AVAILABLE Confirmed by SUNNY MCGEE, CHAD ([id number]) on 12/30/2016 10:39:00 AM Referred By: KITTY LIND DR Confirmed By:CHAD CORREA MD
[2016-12-30] MEDS ORDERED: LACTATED RINGERS SOLUTION 1,000 ML IV SCH (11:00)
[2016-12-30 11:19] LABS: INR 1.21 (0.82-1.09); MCH 28.8 pg (25.7-33.7); MCHC 32.6 g/dl (32.0-36.0); MEAN CELL VOLUME 88.5 fl (80-96); PLATELET COUNT 168 K/MM3 (134-434); PROTHROMBIN TIME (PATIENT) 13.4 SEC (9.98-11.88); RDW 14.3 % (11.6-15.6); WHITE BLOOD COUNT 3.9 K/mm3 (4.0-10.0)
[2016-12-30 11:22] LABS: ACTIVATED PTT 20.1 SECONDS (26.9-34.4)
[2016-12-30 11:32] LABS: ALBUMIN 3.6 g/dl (3.4-5.0); ANION GAP 8 (8-16); BILIRUBIN,TOTAL 0.9 mg/dL (0.2-1.0); CALCIUM 8.8 mg/dL (8.5-10.1); CO2 27 mmol/L (21-32); GLUCOSE,RANDOM 90 mg/dL (74-106); PHOSPHOROUS 3.1 mg/dL (2.5-4.9); SGPT/ALT 12 U/L (12-78); TOT PROT 7.1 g/dl (6.4-8.2)
[2016-12-30 11:33] LABS: ALK PHOS 59 U/L (45-117)
[2016-12-30] MEDS ORDERED: PT OWN MED DRAWER 7, Y5N ONE ×3 (11:41→21:38)
[2016-12-30 11:48] LABS: MAGNESIUM 2.2 mg/dL (1.8-2.4); SGOT/AST 16 U/L (15-37)
[2016-12-30 12:53] LABS: TOTAL CELLS COUNTED 100
[2016-12-30 12:54] LABS: METAMYELOCYTE 1 % (0-2)
--- NOTE | 2016-12-30 13:07 | PN ---
Physical Exam: SUBJECTIVE: Patient seen and examined. Had Abdominal Xray done this morning- shows complete small bowel obstruction Said she had one watery bowel movement today, requesting food but was explained the severity of her condition. OBJECTIVE: Vital Signs Period Temp Pulse Resp BP Sys/Gustafson Pulse Ox Last 24 Hr 97.8 F-98.8 F 54-78 16-18 124-143/65-93 97-100 GENERAL: Obese lady, awake, alert, and fully oriented, in mild painful distress. HEAD: Normal with no signs of trauma. EYES: Pupils equal, round and reactive to light, extraocular movements intact, sclera anicteric, conjunctiva clear. No lid lag. EARS, NOSE, THROAT: Ears normal, nares patent, oropharynx clear without exudates. Moist mucous membranes. NECK: Normal range of motion, supple without lymphadenopathy, JVD, or masses. LUNGS:Port seen on L chest. Breath sounds equal, clear to auscultation bilaterally. No wheezes, and no crackles. No accessory muscle use. HEART: Regular rate and rhythm, normal S1 and S2 without murmur, rub or gallop. ABDOMEN: Obese, midline scar seen below the umbilicus. Soft, tender epigastrium. Hyperactive bowel sounds, mild guarding, no rebound, no masses. No hepatomegaly or splenomegaly. MUSCULOSKELETAL: Normal range of motion at all joints. No bony deformities or tenderness. No CVA tenderness. UPPER EXTREMITIES: 2+ pulses, warm, well-perfused. No cyanosis. No clubbing. No peripheral edema. LOWER EXTREMITIES: 2+ pulses, warm, well-perfused. No calf tenderness. No peripheral edema. NEUROLOGICAL: Cranial nerves II-XII intact. Normal speech. Normal gait. PSYCHIATRIC: Cooperative. Good eye contact. Appropriate mood and affect. SKIN: Warm, dry, normal turgor, no rashes or lesions noted, normal capillary refill. From [facility]-Per Dr Zayas PET-CT IMPRESSION: 1. Mesenteric stranding with foci of activity that may represent in part activity in small deposits or nodes. No distinct hypermetabolic mass per se is seen. 2. Nonspecific activity around the right prosthetic breast with no focal abnormal activity seen that is concerning for FDG avid malignant process. 3. Worsening venous collaterals in the left anterior chest wall and abdomen with few showing increased activity that is atypical. Please correlate clinically for any inflammatory process.There bowel loops that appear adherent to the left anterior abdominal wall. There are foci of increased activity within the abdomen with some localizing to bowel loops, in others, it is difficult to identify the exact localization but may represent activity in small metastases or nodes. This pattern is seen when malignant deposits or nodes are very small and may be difficult to resolve on PET. No distinct hypermetabolic mass per se is seen. Mass, peritoneum, resection: - Fragments of fibrotic tissue with clusters of atypical cells with marked crushing artifacts, with immunophenotypical features compatible with involvement by carcinoma. See Note. Note: The atypical cells show marked crushing artifacts, preclude detailed morphological evaluation. Immunoperoxidase study reveals the atypical cells are positive for AE1/3, CK7, CAM5.2, GATA3, ER (positive in approximately 30% of atypical cells, moderate), and are negative for CK20. TN and HER2 immunostaining is not contributory due to poorly preserved morphology. The overall immunophenotypical findings are compatible with involvement by carcinoma, together with the patient's clinical history of breast cancer, favor breast origin. Correlation with clinical findings is recommended. Laboratory Results - last 24 hr 12/29/16 12/30/16 12/30/16 19:30 01:29 06:36 WBC RBC Hgb Hct MCV MCH MCHC RDW Plt Count MPV Total Counted Neutrophils % Neutrophils % (Manual) Band Neuts % (Manual) Lymphocytes % Lymphocytes % (Manual) Monocytes % (Manual) PT with INR INR PTT (Actin FS) Sodium Potassium Chloride Carbon Dioxide Anion Gap BUN Creatinine Creat Clearance w eGFR POC Glucometer 118 103 Random Glucose Calcium Phosphorus Magnesium Total Bilirubin AST ALT Alkaline Phosphatase Total Protein Albumin Serum , Qual Negative Urine Color Dkyellow Urine Appearance Slcloudy Urine pH 5.0 D Ur Specific Emerson >= 1.030 H Urine Protein 1+ H Urine Glucose (UA) Negative Urine Ketones 2+ H Urine Blood Negative Urine Nitrite Negative Urine Bilirubin Negative Urine Urobilinogen Negative Urine RBC 2 Urine WBC 3 Ur Epithelial Cells Moderate Urine Mucus Few Urine HCG, Qual Cancelled 12/30/16 12/30/16 12/30/16 10:03 10:55 10:55 WBC 3.9 L D RBC 4.87 Hgb 14.0 Hct 43.1 MCV 88.5 MCH 28.8 MCHC 32.6 RDW 14.3 Plt Count 168 MPV 11.0 Total Counted 100 Neutrophils % No Result Required. Neutrophils % (Manual) 42 L Band Neuts % (Manual) 1 Lymphocytes % No Result Required. Lymphocytes % (Manual) 39 Monocytes % (Manual) 17 H* PT with INR 13.40 H INR 1.21 H PTT (Actin FS) 20.1 L Sodium Potassium Chloride Carbon Dioxide Anion Gap BUN Creatinine Creat Clearance w eGFR POC Glucometer 91 Random Glucose Calcium Phosphorus Magnesium Total Bilirubin AST ALT Alkaline Phosphatase Total Protein Albumin Serum , Qual Urine Color Urine Appearance Urine pH Ur Specific Emerson Urine Protein Urine Glucose (UA) Urine Ketones Urine Blood Urine Nitrite Urine Bilirubin Urine Urobilinogen Urine RBC Urine WBC Ur Epithelial Cells Urine Mucus Urine HCG, Qual 12/30/16 10:55 WBC RBC Hgb Hct MCV MCH MCHC RDW Plt Count MPV Total Counted Neutrophils % Neutrophils % (Manual) Band Neuts % (Manual) Lymphocytes % Lymphocytes % (Manual) Monocytes % (Manual) PT with INR INR PTT (Actin FS) Sodium 142 Potassium 3.8 Chloride 107 Carbon Dioxide 27 Anion Gap 8 BUN 15 D Creatinine 1.0 Creat Clearance w eGFR > 60 POC Glucometer Random Glucose 90 D Calcium 8.8 Phosphorus 3.1 Magnesium 2.2 Total Bilirubin 0.9 AST 16 ALT 12 Alkaline Phosphatase 59 Total Protein 7.1 Albumin 3.6 Serum , Qual Urine Color Urine Appearance Urine pH Ur Specific Emerson Urine Protein Urine Glucose (UA) Urine Ketones Urine Blood Urine Nitrite Urine Bilirubin Urine Urobilinogen Urine RBC Urine WBC Ur Epithelial Cells Urine Mucus Urine HCG, Qual Active Medications Generic Name Dose Route Start Last Admin Trade Name Freq PRN Reason Stop Dose Admin Enoxaparin Sodium 120 mg/ 150 mg 12/29/16 17:30 12/29/16 18:03 Enoxaparin Sodium 30 mg SQ 150 mg DAILY MIHIR Administration Hydromorphone HCl 2 mg 12/29/16 18:55 12/30/16 01:32 Dilaudid Injection - IVPB 2 mg Q6H PRN Administration PAIN Lactated Ringer's 1,000 mls @ 75 mls/hr 12/30/16 11:00 Lactated Ringers Solution IV ASDIR [facility] Insulin Aspart 1 vial 12/29/16 22:00 12/30/16 11:00 Novolog Vial Sliding Scale - SQ Not Given ACHS [facility] Protocol Ondansetron HCl 4 mg 12/29/16 18:56 12/30/16 01:30 Zofran Injection IVPB 4 mg Q6H PRN Administration NAUSEA ASSESSMENT/PLAN: #Small bowel obstruction most likely related to her 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 We (Dr Terry and I) explained that NGT is a part of the management for SBO and she has agreed to have it inserted. CXR confirmed it was in the stomach. CBC-WBC dropped from 7.6 at presentation to 3.9 will monitor BMP Consult- oncology- Dr Zayas on board- discussing with patient about transferring back to [facility]. Dr Zayas spoke with oncologist at [facility], they would consider accepting the patient if she gets an NGT and is followed up her till tomorrow. Consult- Surgery-Dr Gonzalez saw, obstruction likely due to peritoneal cancer likely breast ca origin, so surgical intervention here will likely not be beneficial patient will need to return to a tertiary center to be seen by surgical oncologist. Patient was very reluctant about going back to [facility] and attempted to sign AMA. Her [facility] doctors were contacted by Dr Zayas and they will consider accepting her after NGT insertion. See above. monitor CBC, Mg, K, Phos #Hypokalemia Due to the vomiting Replete as needed Will monitor CMP #Nausea and vomiting: Zofran X 1 #Abdominal pain Likely due to the obstruction Dilaudid one dose- surgery requested to minimize opiates #DM Patient said she has been managed on diet alone SSI Will monitor #HTN Patient says she has been stable off meds managed with diet Will monitor #Asthma No SOB, not in acute exacerbation Will monitor #DVT On lovenox 150mls/day Continue #FEN Continue N/saline Replete electrolytes as needed NPO for now #Prophylaxis DVT- on Lovenox 150ml/day (for DVT) # Dispo Admit Med Surg Visit type - Emergency Visit Emergency Visit: Yes ED Registration Date: 12/29/16 Care time: The patient presented to the Emergency Department on the above date and was hospitalized for further evaluation of their emergent condition. - New Patient This patient is new to me today: No - Critical Care Critical Care patient: No - Discharge Referral Referred to [facility] Med [facility].C.: No
[2016-12-30] MEDS: ENOXAPARIN 120 MG, ENOXAPARIN 30 MG SQ SCH (13:50)
--- NOTE | 2016-12-30 14:13 | CONSULT ---
Consult Consult Specialty:: Oncology - History of Present Illness History of Present Illness: Brief Records from [facility]: """46 yo woman with PMH of right breast cancer diagnosed in 12/2011 who presents with new peritoneal carcinomatosis of unclear primary origin. Her ILC was likely T2N1M0 at diagnosis. LVI was present, and the tumor was ER/TX+ and [id number] negative. Pt then completed adjuvant dose dense ACx4/Taxol x12, followed by local right chest wall XRT(09/12/12-10/20/12) at [facility].With respect to hormonal therapy, she was initially treated with tamoxifen from 10/2012-05/2013 but she had extensive UE thrombosis associated with her portacath. Of note, she had a hysterectomy and right salpingo-oophrectomy in the past and she underwent left salpingo-oophrectomy in 2013. She was treated with anastrozole until 10/2014; she could not tolerate it due to depression and insomnia.She has a significant hx of VTE as above with a potential PE that was diagnosed in 05/2016. She had been on coumadin for several years but was transitioned to lovenox during a recent hospitalization by Hematology.She was admitted for small bowel obstruction from 11/11-11/15.NG tube was placed. She remained NPO, nothing by mouth, and was getting fluids through her IV. Her CT scan did not show any high-grade obstruction, although she continued to have severe abdominal pain and when she passed a bloody stool she was taken to the operating room for an diagnostic laparoscopy,peritoneal biopsy where they found peritoneal/mesenteric implants, concerning for carcinomatosis. Pathology shows likely carcinoma favoring breast origin. PET-CT IMPRESSION: 1. Mesenteric stranding with foci of activity that may represent in part activity in small deposits or nodes. No distinct hypermetabolic mass per se is seen. 2. Nonspecific activity around the right prosthetic breast with no focal abnormal activity seen that is concerning for FDG avid malignant process. 3. Worsening venous collaterals in the left anterior chest wall and abdomen with few showing increased activity that is atypical. Please correlate clinically for any inflammatory process.There bowel loops that appear adherent to the left anterior abdominal wall. There are foci of increased activity within the abdomen with some localizing to bowel loops, in others, it is difficult to identify the exact localization but may represent activity in small metastases or nodes. This pattern is seen when malignant deposits or nodes are very small and may be difficult to resolve on PET. No distinct hypermetabolic mass per se is seen. Mass, peritoneum, resection:Fragments of fibrotic tissue with clusters of atypical cells with marked crushing artifacts, with immunophenotypical features compatible with involvement by carcinoma.Note: The atypical cells show marked crushing artifacts , preclude detailed morphological evaluation. Immunoperoxidase study reveals the atypical cells are positive for AE1/3, CK7, CAM5.2, GATA3, ER (positive in approximately 30% of atypical cells, moderate), and are negative for CK20. [place] and HER2 immunostaining is not contributory due to poorly preserved morphology. The overall immunophenotypical findings are compatible with involvement by carcinoma, together with the patient's clinical history of breast cancer, favor breast origin. Correlation with clinical findings is recommended. Presently, she is admitted w/ n/v and found to have SBO. Pt seen and examined. - History Source History Provided By: Patient, Family Member, Medical Record - Past Medical History [employer]: Yes: Peripheral Neuropathy Cardio/Vascular: Yes: Deep Vein Thrombosis (on therapeutic lovenox), HTN Pulmonary: Yes: Asthma Gastrointestinal: Yes: Cancer (peritoneal - diagnosed with laparoscopic biopsy , which was inadequate to identify primary organ) ...: No Psych: Yes: Depression (pt does not take meds regularly) Musculoskeletal: Yes: Chronic low back pain, Osteoarthritis Endocrine: Yes: Diabetes Mellitus (diet-controlled type 2) - Past Surgical History Past Surgical History: Yes: Hysterectomy (laparoscopic), Mastectomy (right for cancer with ALND; left prophylactic), Oopherectomy (1st open; 2nd laparoscopic for prophylaxis after breast CA dx and need for hormonal therapy and h/o DVT) Additional Surgical History: left-sided port-a-cath x5y; laparoscopy for endometriosis; laparoscopy for SBO 11/18 with peritoneal biopsy positive for cancer but inconclusive for etiology - Alcohol/Substance Use Hx Alcohol Use: No History of Substance Use: reports: None - Smoking History Smoking history: Never smoked Have you smoked in the past 12 months: No - Social History ADL: Independent Home Medications - Allergies Allergies/Adverse Reactions: Allergies Allergy/AdvReac Type Severity Reaction Status Date / Time lisinopril Allergy Severe Swelling Verified 12/29/16 10:03 rivaroxaban [From Xarelto] Allergy Severe Swelling Verified 12/29/16 10:03 tamoxifen Allergy Severe Swelling Verified 12/29/16 10:03 - Home Medications Home Medications: Ambulatory Orders Enoxaparin Sodium [Lovenox] 150 mg SQ DAILY 12/29/16 Metoclopramide HCl 10 mg PO DAILY PRN 12/29/16 Omeprazole 40 mg PO DAILY 12/29/16 Sennosides [Senna Concentrate] 8.6 mg PO DAILY 12/29/16 Simethicone [Gas Relief] 125 mg PO PRN 12/29/16 Physical Exam Vital Signs: Vital Signs Temperature 97.9 F 12/30/16 09:51 Pulse Rate 54 L 12/30/16 09:51 Respiratory Rate 16 12/30/16 09:51 Blood Pressure 130/90 12/30/16 09:51 O2 Sat by Pulse Oximetry (%) 97 12/30/16 09:00 Constitutional: Yes: Moderate Distress HENT: Yes: Atraumatic, Normocephalic Neck: Yes: Supple, Trachea Midline Cardiovascular: Yes: Regular Rate and Rhythm Gastrointestinal: Yes: Abdomen, Obese, Hypoactive Bowel Sounds, Vomiting Labs: CBC, BMP 12/30/16 10:55 12/30/16 10:55 Imaging - Results Cat Scan: Report Reviewed Assessment/Plan Likely metastatic breast SBO ( cause likely from the peritoneal disease, adhesions from prior surgery) Nausea/Vomiting from above -Have spent a significant amount of time , first in encouraging the pt for agreeing for NGT placement. With the support of resident , she agreed for NGT placement. -will follow with conversative management for now -Surgery consult noted -Also discussed case with [facility] providers and also Oncology service attending at [facility], for now will c/w conservative management and may need transfer. if no improvement, surgical eval at tertiary center would be needed. -IVF, Lyte repletion -repeat AXR in the am -d/w Surgery, Hospitalist team , pts daughter in detail -will follow closely.
--- NOTE | 2016-12-30 19:44 | PN ---
Teaching Attending Note Name of Resident: Jennifer Burgos ATTENDING PHYSICIAN STATEMENT I saw and evaluated the patient. I reviewed the resident's note and discussed the case with the resident. I agree with the resident's findings and plan as documented. SUBJECTIVE: Patient is feeling better, but wants to go home. continues to refuse NG tube. OBJECTIVE: Vital Signs Temperature 97.8 F 12/30/16 18:00 Pulse Rate 59 L 12/30/16 18:00 Respiratory Rate 20 12/30/16 18:00 Blood Pressure 144/99 12/30/16 18:00 O2 Sat by Pulse Oximetry (%) 97 12/30/16 09:00 CBCD WBC 3.9 K/mm3 (4.0-10.0) L D 12/30/16 10:55 RBC 4.87 M/mm3 (3.60-5.2) 12/30/16 10:55 Hgb 14.0 GM/dL (10.7-15.3) 12/30/16 10:55 Hct 43.1 % (32.4-45.2) 12/30/16 10:55 MCV 88.5 fl (80-96) 12/30/16 10:55 MCHC 32.6 g/dl (32.0-36.0) 12/30/16 10:55 RDW 14.3 % (11.6-15.6) 12/30/16 10:55 Plt Count 168 K/MM3 (134-434) 12/30/16 10:55 MPV 11.0 fl (7.5-11.1) 12/30/16 10:55 CMP Sodium 142 mmol/L (136-145) 12/30/16 10:55 Potassium 3.8 mmol/L (3.5-5.1) 12/30/16 10:55 Chloride 107 mmol/L (98-107) 12/30/16 10:55 Carbon Dioxide 27 mmol/L (21-32) 12/30/16 10:55 Anion Gap 8 (8-16) 12/30/16 10:55 BUN 15 mg/dL (7-18) D 12/30/16 10:55 Creatinine 1.0 mg/dL (0.55-1.02) 12/30/16 10:55 Creat Clearance w eGFR > 60 (>60) 12/30/16 10:55 Random Glucose 90 mg/dL (74-106) D 12/30/16 10:55 Calcium 8.8 mg/dL (8.5-10.1) 12/30/16 10:55 Total Bilirubin 0.9 mg/dL (0.2-1.0) 12/30/16 10:55 AST 16 U/L (15-37) 12/30/16 10:55 ALT 12 U/L (12-78) 12/30/16 10:55 Alkaline Phosphatase 59 U/L (45-117) 12/30/16 10:55 Total Protein 7.1 g/dl (6.4-8.2) 12/30/16 10:55 Albumin 3.6 g/dl (3.4-5.0) 12/30/16 10:55 Current Medications Generic Name Dose Route Start Last Admin Trade Name Freq PRN Reason Stop Dose Admin Enoxaparin Sodium 120 mg/ 150 mg 12/30/16 22:00 Enoxaparin Sodium 30 mg SQ HS [facility] Lactated Ringer's 1,000 mls @ 75 mls/hr 12/30/16 11:00 Lactated Ringers Solution IV ASDIR MIHIR Famotidine/Sodium Chloride 50 mls @ 100 mls/hr 12/30/16 22:00 Pepcid 20 Mg Premixed Ivpb - IVPB BID MIHIR Insulin Aspart 1 vial 12/29/16 22:00 12/30/16 17:55 Novolog Vial Sliding Scale - SQ Not Given ACHS [facility] Protocol Home Medications Medication Instructions Recorded Enoxaparin Sodium [Lovenox] 150 mg SQ DAILY 12/29/16 Metoclopramide HCl 10 mg PO DAILY PRN 12/29/16 Omeprazole 40 mg PO DAILY 12/29/16 Sennosides [Senna Concentrate] 8.6 mg PO DAILY 12/29/16 Simethicone [Gas Relief] 125 mg PO PRN 12/29/16 PE: continues to have nausea and vomiting Chest: left sided Port A cath, BL mastectomy Heart: S1S2 positive. Abdomen: diminished Bowel sounds, but soft rest of physical exam per resident. CT of abdomen: SBO CT abdomen-shows mechanical bowel obstruction with transition zone in the pelvis CXR: cardiomegaly ASSESSMENT AND PLAN: This patient is a 48 year old female, with PMHx of multiple surgeries Laporoscopic Hysterectomy, Mastectomy (right for cancer and left prophylactic) , Oopherectomy (1st open; 2nd laparoscopic for prophylaxis after breast CA dx with hx of DVT on hormonal therapy, with recent SBO on 11/2016 s/p lap.with peritoneal Bx at [facility]. which was positive for cancer. Patient presented with nausea and vomiting and was found to have SBO on CT # Acute mechanical SBO due to malignant neoplasm of peritoneum continue NPO for now. Patient was evaluated by , suggested NG tube but patient continued to refuse the NG tube afterward agreed to NG tube . per surgery supportive care for now, needing higher care for this patient. Patient was given the option to tx her to [facility], but patient kept refusing ,and would like to go home. # Malignant Neoplasm of Peritoneum ; further w/u is needed. As per Oncologist will contact [facility] for further information and to arrange tx to [facility]. if patient agrees . # Mechanical obstruction of the intestine due to her cancer mets.of peritoneal. # Hx of right breast ca with left prophylactic surgery s/p BL mastectomy with 3 nodes positive was treated by Nolvadex but as per patient developed DVT, so patient is on Lovenox for her DVT now. Oncology consult appreciated. # Hx of DVT on 150mg Lovenox DVT Px: Lovenox
[2016-12-30] MEDS ORDERED: HYDROmorphone HCL CARPU-JECT 1 MG/1 ML DISP.SYRIN IVPB ONE (20:17)
[2016-12-30] MEDS ORDERED: ENOXAPARIN 120 MG, ENOXAPARIN 30 MG SQ SCH (22:00)
[2016-12-30] MEDS: FAMOTIDINE 20 MG/50 ML IVPB 50 ML IVPB SCH (22:07)
[2016-12-31] MEDS: INSULIN SLIDING SCALE (NOVOLOG) 1 VIAL SQ SCH ×2 (06:18→11:52)
[2016-12-31 08:58] LABS: ANION GAP 8 (8-16); CALCIUM 8.7 mg/dL (8.5-10.1); CO2 26 mmol/L (21-32); CREATININE 0.9 mg/dL (0.55-1.02); GLUCOSE,RANDOM 81 mg/dL (74-106); PHOSPHOROUS 2.8 mg/dL (2.5-4.9)
--- NOTE | 2016-12-31 09:04 | PN ---
<Agaba,Comfort I - Last Filed: 12/31/16 08:51> Physical Exam: SUBJECTIVE: Patient seen and examined NGT in placed. Drained greenish colored fluid yesterday. Said not to be actively draining now. Patient refused to have the alexandre catheter put in. Also refusing to receive her lovenox dose. OBJECTIVE: Vital Signs Period Temp Pulse Resp BP Sys/Gustafson Pulse Ox Last 24 Hr 97.4 F-98.9 F 54-89 16-20 123-159/70-99 97-97 GENERAL: Obese lady, awake, alert, and fully oriented, in mild painful distress. HEAD: Normal with no signs of trauma. EYES: Pupils equal, round and reactive to light, extraocular movements intact, sclera anicteric, conjunctiva clear. No lid lag. EARS, NOSE, THROAT: NGT in place. Ears normal, nares patent, oropharynx clear without exudates. Moist mucous membranes. NECK: Normal range of motion, supple without lymphadenopathy, JVD, or masses. LUNGS:Port seen on L chest. Bilateral mastectomy noted bilaterally. Breath sounds equal, clear to auscultation bilaterally. No wheezes, and no crackles. No accessory muscle use. HEART: Regular rate and rhythm, normal S1 and S2 without murmur, rub or gallop. ABDOMEN: Obese, midline scar seen below the umbilicus. Soft, tender epigastrium. Hypoactive bowel sounds, mild guarding, no rebound, no masses. No hepatomegaly or splenomegaly. MUSCULOSKELETAL: Normal range of motion at all joints. No bony deformities or tenderness. No CVA tenderness. UPPER EXTREMITIES: 2+ pulses, warm, well-perfused. No cyanosis. No clubbing. No peripheral edema. LOWER EXTREMITIES: 2+ pulses, warm, well-perfused. No calf tenderness. No peripheral edema. NEUROLOGICAL: Cranial nerves II-XII intact. Normal speech. Normal gait. PSYCHIATRIC: Cooperative. Good eye contact. Appropriate mood and affect. SKIN: Warm, dry, normal turgor, no rashes or lesions noted, normal capillary refill. Laboratory Results - last 24 hr 12/30/16 12/30/16 12/30/16 10:03 10:55 10:55 WBC 3.9 L D RBC 4.87 Hgb 14.0 Hct 43.1 MCV 88.5 MCH 28.8 MCHC 32.6 RDW 14.3 Plt Count 168 MPV 11.0 Total Counted 100 Neutrophils % No Result Required. Neutrophils % (Manual) 42 L Band Neuts % (Manual) 1 Lymphocytes % No Result Required. Lymphocytes % (Manual) 39 Monocytes % (Manual) 17 H* PT with INR 13.40 H INR 1.21 H PTT (Actin FS) 20.1 L Sodium Potassium Chloride Carbon Dioxide Anion Gap BUN Creatinine Creat Clearance w eGFR POC Glucometer 91 Random Glucose Hemoglobin A1c % Calcium Phosphorus Magnesium Total Bilirubin AST ALT Alkaline Phosphatase Total Protein Albumin 12/30/16 12/30/16 12/30/16 10:55 11:00 17:43 WBC RBC Hgb Hct MCV MCH MCHC RDW Plt Count MPV Total Counted Neutrophils % Neutrophils % (Manual) Band Neuts % (Manual) Lymphocytes % Lymphocytes % (Manual) Monocytes % (Manual) PT with INR INR PTT (Actin FS) Sodium 142 Potassium 3.8 Chloride 107 Carbon Dioxide 27 Anion Gap 8 BUN 15 D Creatinine 1.0 Creat Clearance w eGFR > 60 POC Glucometer 127 Random Glucose 90 D Hemoglobin A1c % 6.1 H Calcium 8.8 Phosphorus 3.1 Magnesium 2.2 Total Bilirubin 0.9 AST 16 ALT 12 Alkaline Phosphatase 59 Total Protein 7.1 Albumin 3.6 12/30/16 12/31/16 21:46 06:14 WBC RBC Hgb Hct MCV MCH MCHC RDW Plt Count MPV Total Counted Neutrophils % Neutrophils % (Manual) Band Neuts % (Manual) Lymphocytes % Lymphocytes % (Manual) Monocytes % (Manual) PT with INR INR PTT (Actin FS) Sodium Potassium Chloride Carbon Dioxide Anion Gap BUN Creatinine Creat Clearance w eGFR POC Glucometer 120 85 Random Glucose Hemoglobin A1c % Calcium Phosphorus Magnesium Total Bilirubin AST ALT Alkaline Phosphatase Total Protein Albumin Active Medications Generic Name Dose Route Start Last Admin Trade Name Freq PRN Reason Stop Dose Admin Enoxaparin Sodium 120 mg/ 150 mg 12/30/16 22:00 12/30/16 22:07 Enoxaparin Sodium 30 mg SQ Not Given HS MIHIR Lactated Ringer's 1,000 mls @ 75 mls/hr 12/30/16 11:00 12/30/16 22:09 Lactated Ringers Solution IV 75 mls/hr ASDIR MIHIR Administration Famotidine/Sodium Chloride 50 mls @ 100 mls/hr 12/30/16 22:00 12/30/16 22:07 Pepcid 20 Mg Premixed Ivpb - IVPB 100 mls/hr BID MIHIR Administration Insulin Aspart 1 vial 12/29/16 22:00 12/31/16 06:18 Novolog Vial Sliding Scale - SQ Not Given ACHS [facility] Protocol ASSESSMENT/PLAN: #Small bowel obstruction most likely related to her 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 Consult- Surgery-saw , Mg, K, Phos #Hypokalemia Due to the vomiting Replete as needed Will monitor CMP #Nausea and vomiting: No episode overnight <BrigetteAlleyvirginiaRaiza - Last Filed: 12/31/16 10:40> Physical Exam: SUBJECTIVE: Patient seen and examined OBJECTIVE: Vital Signs Period Temp Pulse Resp BP Sys/Gustafson Pulse Ox Last 24 Hr 97.4 F-98.9 F 58-89 18-20 123-159/70-99 97 GENERAL: The patient is awake, alert, and fully oriented, in no acute distress. HEAD: Normal with no signs of trauma. EYES: PERRL, extraocular movements intact, sclera anicteric, conjunctiva clear. No ptosis. ENT: Ears normal, nares patent, oropharynx clear without exudates, moist mucous membranes. NECK: Trachea midline, full range of motion, supple. LUNGS: Breath sounds equal, clear to auscultation bilaterally, no wheezes, no crackles, no accessory muscle use. HEART: Regular rate and rhythm, S1, S2 without murmur, rub or gallop. ABDOMEN: Soft, nontender, nondistended, normoactive bowel sounds, no guarding, no rebound, no hepatosplenomegaly, no masses. EXTREMITIES: 2+ pulses, warm, well-perfused, no edema. NEUROLOGICAL: Cranial nerves II through XII grossly intact. Normal speech, gait not observed. PSYCH: Normal mood, normal affect. SKIN: Warm, dry, normal turgor, no rashes or lesions noted Laboratory Results - last 24 hr 12/30/16 12/30/16 12/30/16 10:55 10:55 10:55 WBC 3.9 L D RBC 4.87 Hgb 14.0 Hct 43.1 MCV 88.5 MCH 28.8 MCHC 32.6 RDW 14.3 Plt Count 168 MPV 11.0 Total Counted 100 Neutrophils % No Result Required. Neutrophils % (Manual) 42 L Band Neuts % (Manual) 1 Lymphocytes % No Result Required. Lymphocytes % (Manual) 39 Monocytes % (Manual) 17 H* PT with INR 13.40 H INR 1.21 H PTT (Actin FS) 20.1 L Sodium 142 Potassium 3.8 Chloride 107 Carbon Dioxide 27 Anion Gap 8 BUN 15 D Creatinine 1.0 Creat Clearance w eGFR > 60 POC Glucometer Random Glucose 90 D Hemoglobin A1c % Calcium 8.8 Phosphorus 3.1 Magnesium 2.2 Total Bilirubin 0.9 AST 16 ALT 12 Alkaline Phosphatase 59 Total Protein 7.1 Albumin 3.6 12/30/16 12/30/16 12/30/16 11:00 17:43 21:46 WBC RBC Hgb Hct MCV MCH MCHC RDW Plt Count MPV Total Counted Neutrophils % Neutrophils % (Manual) Band Neuts % (Manual) Lymphocytes % Lymphocytes % (Manual) Monocytes % (Manual) PT with INR INR PTT (Actin FS) Sodium Potassium Chloride Carbon Dioxide Anion Gap BUN Creatinine Creat Clearance w eGFR POC Glucometer 127 120 Random Glucose Hemoglobin A1c % 6.1 H Calcium Phosphorus Magnesium Total Bilirubin AST ALT Alkaline Phosphatase Total Protein Albumin 12/31/16 12/31/16 06:14 07:00 WBC RBC Hgb Hct MCV MCH MCHC RDW Plt Count MPV Total Counted Neutrophils % Neutrophils % (Manual) Band Neuts % (Manual) Lymphocytes % Lymphocytes % (Manual) Monocytes % (Manual) PT with INR INR PTT (Actin FS) Sodium 140 Potassium 3.9 Chloride 106 Carbon Dioxide 26 Anion Gap 8 BUN 12 Creatinine 0.9 Creat Clearance w eGFR POC Glucometer 85 Random Glucose 81 Hemoglobin A1c % Calcium 8.7 Phosphorus 2.8 Magnesium Total Bilirubin AST ALT Alkaline Phosphatase Total Protein Albumin Active Medications Generic Name Dose Route Start Last Admin Trade Name Freq PRN Reason Stop Dose Admin Enoxaparin Sodium 120 mg/ 150 mg 12/30/16 22:00 12/30/16 22:07 Enoxaparin Sodium 30 mg SQ Not Given HS MIHIR Famotidine/Sodium Chloride 50 mls @ 100 mls/hr 12/30/16 22:00 12/30/16 22:07 Pepcid 20 Mg Premixed Ivpb - IVPB 100 mls/hr BID MIHIR Administration Dextrose/Sodium Chloride 1,000 mls @ 75 mls/hr 12/31/16 09:15 D5-1/2ns - IV ASDIR MIHIR Insulin Aspart 1 vial 12/29/16 22:00 12/31/16 06:18 Novolog Vial Sliding Scale - SQ Not Given ACHS [facility] Protocol ASSESSMENT/PLAN:
[2016-12-31] MEDS ORDERED: DEXTROSE 5%-0.45% SALINE 1,000 ML IV SCH (09:15)
[2016-12-31 10:40] VITALS: BP 141/90; PULSE 66; TEMP 98
--- NOTE | 2016-12-31 11:13 | PN ---
Physical Exam: SUBJECTIVE: Patient seen and examined No n/v overnight. Patient had NGT put in yesterday but said to have pulled it out this a,m OBJECTIVE: Vital Signs Period Temp Pulse Resp BP Sys/Gustafson Pulse Ox Last 24 Hr 97.4 F-98.9 F 58-89 18-20 123-159/70-99 97 GENERAL: Obese lady, awake, alert, and fully oriented, in mild painful distress. HEAD: Normal with no signs of trauma. EYES: Pupils equal, round and reactive to light, extraocular movements intact, sclera anicteric, conjunctiva clear. No lid lag. EARS, NOSE, THROAT: Ears normal, nares patent, oropharynx clear without exudates. Moist mucous membranes. NECK: Normal range of motion, supple without lymphadenopathy, JVD, or masses. LUNGS:Port seen on L chest. Breath sounds equal, clear to auscultation bilaterally. No wheezes, and no crackles. No accessory muscle use. HEART: Regular rate and rhythm, normal S1 and S2 without murmur, rub or gallop. ABDOMEN: Obese, midline scar seen below the umbilicus. Soft, tender epigastrium. Hyperactive bowel sounds, mild guarding, no rebound, no masses. No hepatomegaly or splenomegaly. MUSCULOSKELETAL: Normal range of motion at all joints. No bony deformities or tenderness. No CVA tenderness. UPPER EXTREMITIES: 2+ pulses, warm, well-perfused. No cyanosis. No clubbing. No peripheral edema. LOWER EXTREMITIES: 2+ pulses, warm, well-perfused. No calf tenderness. No peripheral edema. NEUROLOGICAL: Cranial nerves II-XII intact. Normal speech. Normal gait. PSYCHIATRIC: Cooperative. Good eye contact. Appropriate mood and affect. SKIN: Warm, dry, normal turgor, no rashes or lesions noted, normal capillary refill. Laboratory Results - last 24 hr 12/30/16 12/30/16 12/30/16 10:55 10:55 10:55 WBC 3.9 L D RBC 4.87 Hgb 14.0 Hct 43.1 MCV 88.5 MCH 28.8 MCHC 32.6 RDW 14.3 Plt Count 168 MPV 11.0 Total Counted 100 Neutrophils % No Result Required. Neutrophils % (Manual) 42 L Band Neuts % (Manual) 1 Lymphocytes % No Result Required. Lymphocytes % (Manual) 39 Monocytes % (Manual) 17 H* PT with INR 13.40 H INR 1.21 H PTT (Actin FS) 20.1 L Sodium 142 Potassium 3.8 Chloride 107 Carbon Dioxide 27 Anion Gap 8 BUN 15 D Creatinine 1.0 Creat Clearance w eGFR > 60 POC Glucometer Random Glucose 90 D Hemoglobin A1c % Calcium 8.8 Phosphorus 3.1 Magnesium 2.2 Total Bilirubin 0.9 AST 16 ALT 12 Alkaline Phosphatase 59 Total Protein 7.1 Albumin 3.6 12/30/16 12/30/16 12/30/16 11:00 17:43 21:46 WBC RBC Hgb Hct MCV MCH MCHC RDW Plt Count MPV Total Counted Neutrophils % Neutrophils % (Manual) Band Neuts % (Manual) Lymphocytes % Lymphocytes % (Manual) Monocytes % (Manual) PT with INR INR PTT (Actin FS) Sodium Potassium Chloride Carbon Dioxide Anion Gap BUN Creatinine Creat Clearance w eGFR POC Glucometer 127 120 Random Glucose Hemoglobin A1c % 6.1 H Calcium Phosphorus Magnesium Total Bilirubin AST ALT Alkaline Phosphatase Total Protein Albumin 12/31/16 12/31/16 06:14 07:00 WBC RBC Hgb Hct MCV MCH MCHC RDW Plt Count MPV Total Counted Neutrophils % Neutrophils % (Manual) Band Neuts % (Manual) Lymphocytes % Lymphocytes % (Manual) Monocytes % (Manual) PT with INR INR PTT (Actin FS) Sodium 140 Potassium 3.9 Chloride 106 Carbon Dioxide 26 Anion Gap 8 BUN 12 Creatinine 0.9 Creat Clearance w eGFR POC Glucometer 85 Random Glucose 81 Hemoglobin A1c % Calcium 8.7 Phosphorus 2.8 Magnesium Total Bilirubin AST ALT Alkaline Phosphatase Total Protein Albumin Active Medications Generic Name Dose Route Start Last Admin Trade Name Jayq PRN Reason Stop Dose Admin Enoxaparin Sodium 120 mg/ 150 mg 12/30/16 22:00 12/30/16 22:07 Enoxaparin Sodium 30 mg SQ Not Given HS MIHIR Famotidine/Sodium Chloride 50 mls @ 100 mls/hr 12/30/16 22:00 12/30/16 22:07 Pepcid 20 Mg Premixed Ivpb - IVPB 100 mls/hr BID MIHIR Administration Dextrose/Sodium Chloride 1,000 mls @ 75 mls/hr 12/31/16 09:15 D5-1/2ns - IV ASDIR MIHIR Insulin Aspart 1 vial 12/29/16 22:00 12/31/16 06:18 Novolog Vial Sliding Scale - SQ Not Given ACHS MIHIR Protocol ASSESSMENT/PLAN: #Small bowel obstruction most likely related to her new diagnosis of peritoneal 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 We are pursuing conservative management for now. Consult- Surgery-Dr Gonzalez saw for surgical oncology if conservative management fails monitor Mg, K, Phos Plain AXR- pending #Hypokalemia Due to the vomiting Replete as needed Will monitor CMP #Nausea and vomiting: No episodes over night with NGT in #Abdominal pain Likely due to the obstruction Dilaudid one dose- surgery requested to minimize opiates #DM Patient said she has been managed on diet alone SSI Will monitor #HTN Patient says she has been stable off meds managed with diet Will monitor #Asthma No SOB, not in acute exacerbation Will monitor #DVT On lovenox 150mls/day Continue #FEN Continue N/saline Replete electrolytes as needed NPO for now #Prophylaxis DVT- on Lovenox 150ml/day (for DVT) # Dispo Admit Med Surg
[2016-12-31] MEDS: FAMOTIDINE 20 MG/50 ML IVPB 50 ML IVPB SCH (11:52)
[2016-12-31 12:12] LABS: MAGNESIUM 1.9 mg/dL (1.8-2.4)
--- NOTE | 2016-12-31 13:29 | DS ---
Physical Exam: SUBJECTIVE: Patient seen and examined No n/v overnight. Patient had NGT put in yesterday but pulled it out this a,m Now wants to go home AMA OBJECTIVE: Vital Signs Period Temp Pulse Resp BP Sys/Gustafson Pulse Ox Last 24 Hr 97.4 F-98.9 F 58-89 18-20 123-159/70-99 97 PHYSICAL EXAM GENERAL: Obese lady, awake, alert, and fully oriented, in mild painful distress. HEAD: Normal with no signs of trauma. EYES: Pupils equal, round and reactive to light, extraocular movements intact, sclera anicteric, conjunctiva clear. No lid lag. EARS, NOSE, THROAT: Ears normal, nares patent, oropharynx clear without exudates. Moist mucous membranes. NECK: Normal range of motion, supple without lymphadenopathy, JVD, or masses. LUNGS:Port Cath seen on L chest. Bilateral mastectomy scars noted. Breath sounds equal, clear to auscultation bilaterally. No wheezes, and no crackles. No accessory muscle use. HEART: Regular rate and rhythm, normal S1 and S2 without murmur, rub or gallop. ABDOMEN: Obese, midline scar seen below the umbilicus. Soft, tender epigastrium. Hyperactive bowel sounds, mild guarding, no rebound, no masses. No hepatomegaly or splenomegaly. MUSCULOSKELETAL: Normal range of motion at all joints. No bony deformities or tenderness. No CVA tenderness. UPPER EXTREMITIES: 2+ pulses, warm, well-perfused. No cyanosis. No clubbing. No peripheral edema. LOWER EXTREMITIES: 2+ pulses, warm, well-perfused. No calf tenderness. No peripheral edema. NEUROLOGICAL: Cranial nerves II-XII intact. Normal speech. Normal gait. PSYCHIATRIC: Cooperative. Good eye contact. Appropriate mood and affect. SKIN: Warm, dry, normal turgor, no rashes or lesions noted, normal capillary refill. LABS Laboratory Results - last 24 hr 12/30/16 12/30/16 12/30/16 11:00 17:43 21:46 Sodium Potassium Chloride Carbon Dioxide Anion Gap BUN Creatinine POC Glucometer 127 120 Random Glucose Hemoglobin A1c % 6.1 H Calcium Phosphorus Magnesium 12/31/16 12/31/16 12/31/16 06:14 07:00 11:42 Sodium 140 Potassium 3.9 Chloride 106 Carbon Dioxide 26 Anion Gap 8 BUN 12 Creatinine 0.9 POC Glucometer 85 75 Random Glucose 81 Hemoglobin A1c % Calcium 8.7 Phosphorus 2.8 Magnesium 1.9 HOSPITAL COURSE: Date of Admission:12/29/16 Date of Discharge: 12/31/16 A 48 year old female, with significant past history of multiple surgeries including two unilateral oophorectomies, hysterectomy, breast cancer, peritoneal cancer (recent diagnoses and is not currently undergoing any treatment), asthma, DM, HTN, DVT (on lovenox), who presented to the emergency department with abdominal pain, nausea and vomiting and found to have small bowel obstruction most likely secondary to 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 While she was here, she was seen by an oncologist and surgeon, in addition to being managed by the medical team, and her doctors at [facility] were communicated with. She was informed as to the likely cause of her small bowel obstruction being from the peritoneal transplants, and advised to seek tertiary care from her prior oncologists. Discussions were also had about transferring her directly to [facility] but patient declined. Patient was started on conservative management of the mechanical bowel obstruction with fluids, electrolyte monitoring and NGT. Patient only accepted to have NGT drainage for a day. Patient declined a aleaxndre catheter and removed the NGT herself the day after insertion, demanding to leave against medical advice. Patient was counselled on the risks of leaving AMA which could include perforation, sepsis as a result of perforation and eventual , but still insisted on leaving. <Jennifer Burgos I - Last Filed: 12/31/16 13:13> Minutes to complete discharge: 35 <Karine Manriquez - Last Filed: 12/31/16 16:00> Discharge Summary Reason For Visit: SMALL BOWEL OBSTRUCTION - Home Medications Comprehensive Discharge Medication List: Ambulatory Orders Enoxaparin Sodium [Lovenox] 150 mg SQ DAILY 12/29/16 Metoclopramide HCl 10 mg PO DAILY PRN 12/29/16 Omeprazole 40 mg PO DAILY 12/29/16 Sennosides [Senna Concentrate] 8.6 mg PO DAILY 12/29/16 Simethicone [Gas Relief] 125 mg PO PRN 12/29/16 <Jennifer Burgos I - Last Filed: 12/31/16 13:13> - Home Medications Comprehensive Discharge Medication List: Ambulatory Orders Enoxaparin Sodium [Lovenox] 150 mg SQ DAILY 12/29/16 Metoclopramide HCl 10 mg PO DAILY PRN 12/29/16 Omeprazole 40 mg PO DAILY 12/29/16 Sennosides [Senna Concentrate] 8.6 mg PO DAILY 12/29/16 Simethicone [Gas Relief] 125 mg PO PRN 12/29/16 <Karine Manriquez - Last Filed: 12/31/16 16:00> - Instructions Referrals: Mackenzie Syed [Primary Care Provider] - Disposition: AGAINST MEDICAL ADVICE - Discharge Referral Referred to [facility] Med [facility] No <Jennifer Burgos I - Last Filed: 12/31/16 13:13> This patient is new to me today: No Emergency Visit: Yes ED Registration Date: 12/29/16 Care time: The patient presented to the Emergency Department on the above date and was hospitalized for further evaluation of their emergent condition. Critical Care patient: No - Discharge Referral Referred to [facility] Med [facility] No <Karine Manriquez - Last Filed: 12/31/16 16:00>
--- NOTE | 2016-12-31 15:58 | PN ---
Teaching Attending Note Name of Resident: Jennifer Burgos ATTENDING PHYSICIAN STATEMEnt: Patient wants to leave against medical advice. Patient was explained the risks if she leaves, perforation, septic shock and . Daughter at bedside. Vital Signs Temperature 98.0 F 12/31/16 08:30 Pulse Rate 66 12/31/16 08:30 Respiratory Rate 20 12/31/16 08:30 Blood Pressure 141/90 12/31/16 08:30 O2 Sat by Pulse Oximetry (%) 97 12/31/16 09:00 CBCD WBC 3.9 K/mm3 (4.0-10.0) L D 12/30/16 10:55 RBC 4.87 M/mm3 (3.60-5.2) 12/30/16 10:55 Hgb 14.0 GM/dL (10.7-15.3) 12/30/16 10:55 Hct 43.1 % (32.4-45.2) 12/30/16 10:55 MCV 88.5 fl (80-96) 12/30/16 10:55 MCHC 32.6 g/dl (32.0-36.0) 12/30/16 10:55 RDW 14.3 % (11.6-15.6) 12/30/16 10:55 Plt Count 168 K/MM3 (134-434) 12/30/16 10:55 MPV 11.0 fl (7.5-11.1) 12/30/16 10:55 CMP Sodium 140 mmol/L (136-145) 12/31/16 07:00 Potassium 3.9 mmol/L (3.5-5.1) 12/31/16 07:00 Chloride 106 mmol/L (98-107) 12/31/16 07:00 Carbon Dioxide 26 mmol/L (21-32) 12/31/16 07:00 Anion Gap 8 (8-16) 12/31/16 07:00 BUN 12 mg/dL (7-18) 12/31/16 07:00 Creatinine 0.9 mg/dL (0.55-1.02) 12/31/16 07:00 Creat Clearance w eGFR > 60 (>60) 12/30/16 10:55 Random Glucose 81 mg/dL (74-106) 12/31/16 07:00 Calcium 8.7 mg/dL (8.5-10.1) 12/31/16 07:00 Total Bilirubin 0.9 mg/dL (0.2-1.0) 12/30/16 10:55 AST 16 U/L (15-37) 12/30/16 10:55 ALT 12 U/L (12-78) 12/30/16 10:55 Alkaline Phosphatase 59 U/L (45-117) 12/30/16 10:55 Total Protein 7.1 g/dl (6.4-8.2) 12/30/16 10:55 Albumin 3.6 g/dl (3.4-5.0) 12/30/16 10:55 Home Medications Medication Instructions Recorded Enoxaparin Sodium [Lovenox] 150 mg SQ DAILY 12/29/16 Metoclopramide HCl 10 mg PO DAILY PRN 12/29/16 Omeprazole 40 mg PO DAILY 12/29/16 Sennosides [Senna Concentrate] 8.6 mg PO DAILY 12/29/16 Simethicone [Gas Relief] 125 mg PO PRN 12/29/16
== END 2016-12-31 12:35 | disposition left against medical advice (07) | DRG 240 ==
LOC: JER 09:50 → JERBED 15:32 → J5S 12-30 00:31
PROVIDERS: ADMIT Internal Medicine; ATTEND Internal Medicine
PROC: 0D9670Z Drainage of Stomach with Drainage Device, Via Natural or Artificial Opening (ICD-10-PCS; principal; 2016-12-30)
DX: C78.6 Secondary malignant neoplasm of retroperitoneum and peritoneum (principal); K56.69 Other intestinal obstruction; Z85.3 Personal history of malignant neoplasm of breast; Z86.718 Personal history of other venous thrombosis and embolism; I10 Essential (primary) hypertension; E11.9 Type 2 diabetes mellitus without complications; E87.6 Hypokalemia; J45.909 Unspecified asthma, uncomplicated; Z90.722 Acquired absence of ovaries, bilateral; E66.9 Obesity, unspecified; Z90.79 Acquired absence of other genital organ(s); Z68.41 Body mass index [BMI] 40.0-44.9, adult; C56.9 Malignant neoplasm of unspecified ovary; K56.5 Intestinal adhesions [bands] with obstruction (postinfection); C78.89 Secondary malignant neoplasm of other digestive organs; K76.0 Fatty (change of) liver, not elsewhere classified
CPT/HCPCS: 36415; 71010-TC; 74020-TC; 74176-TC; 80048; 80053; 81003; 81015; 83036; 83605; 83690; 83735; 84100; 84703; 85025; 85610; 85730; 86850; 86900; 86901; 87086; 93005; 93010; 99285-25